=== PATIENT | male | born 1945 | race Caucasian/White ===

== ENCOUNTER 2016-12-17 16:03 | Inpatient (IN) | payer MEDICARE, OTHER ==
[~2016-12-17] VITALS: Ht 172.7 cm; Wt 80.6 kg
[2016-12-17] MEDS ORDERED: SODIUM CHLOR 0.9% 1000 ML INJ 1,000 ML IV ONE (17:15)
[2016-12-17] MEDS ORDERED: WARF-18 PO ×2 (17:16)
[2016-12-17] MEDS ORDERED: FERR325C PO (17:16)
[2016-12-17] MEDS ORDERED: LISI-519 PO (17:16)
[2016-12-17] MEDS ORDERED: WARF-23 PO (17:16)
[2016-12-17] MEDS ORDERED: CYAN2500 PO (17:16)
[2016-12-17 17:17] VITALS: BP 161/75; PULSE 115; RESP 20; TEMP 99.5; O2SAT 99
--- NOTE | 2016-12-17 17:32 | PD ---
HPI Chief Complaint: General Weakness Time Seen by Provider: 16:57 Travel History International Travel<30 days: No Contact w/Intl Traveler<30days: No Traveled to known affect area: No History of Present Illness HPI 71-year-old male complains generalized malaise and weakness. Patient states that the symptoms started 2 days ago. Patient states that he fell about 3 months ago and hit the back of the head. Patient was seen at another emergency room and had CT scan of the brain was found to be normal. Patient states that he has intermittent headaches since then. Patient states that headache of aching headache diffuse over the head. Patient denies any visual change. Patient states that he has chronic neck pain also. Patient states that he has poor appetite for the past 2 days. Patient also complains of severe nausea with no vomiting for the past 2 days. Patient states that he has aching pain on the right lower rib cage for the past 2 days. Patient has history of chronic lower extremity ulcers for the past 6 years. Patient has been seen by home health care with dressing change every to 3 days. Patient goes to the [facility]. Patient has history of hypertension, diabetes, hyperlipidemia. Patient also has history of the heartbeat probably atrial fibrillation. Patient is on Coumadin. Patient states that he drinks 4 beers a day. Patient denies any history of smoking. PFSH Past Medical History Atrial Fibrillation: Yes Cardiovascular Problems: Yes High Cholesterol: Yes Diabetes: Yes Patient Takes Glucophage: No Diminished Hearing: No Hypertension: Yes Musculoskeletal: Yes (neck fx) Tetanus Vaccination: > 5 Years Past Surgical History Eye Surgery: Yes (cateracts) Social History Alcohol Use: Yes (3-4 beers pd) Tobacco Use: Yes Substance Use: No Allergies-Medications (Allergen,Severity, Reaction): Coded Allergies: No Known Allergies (Unverified , 12/17/16) Reported Meds & Prescriptions Reported Meds & Active Scripts Active Reported B-12 (Cyanocobalamin) 2,500 Mcg Tab 2,500 Mcg PO DAILY Iron (Ferrous Sulfate) 325 Mg Cap 325 Mg PO DAILY Warfarin 5 Mg Tab 5 Mg PO DAILY Warfarin 2.5 Mg Tab 2.5 Mg PO SATURDAY Lisinopril 5 Mg Tab 5 Mg PO DAILY Review of Systems General / Constitutional: No: Fever Eyes: No: Visual changes HENT: No: Headaches Cardiovascular: No: Chest Pain or Discomfort Respiratory: No: Shortness of Breath Gastrointestinal: No: Abdominal Pain Genitourinary: No: Dysuria Musculoskeletal: No: Pain Skin: No Rash Neurologic: No: Weakness Psychiatric: No: Depression Endocrine: No: Polydipsia Hematologic/Lymphatic: No: Easy Bruising Physical Exam Narrative GENERAL: Well-nourished, well-developed patient. SKIN: Focused skin assessment warm/dry. HEAD: Normocephalic. EYES: No scleral icterus. No injection or drainage. NECK: Supple, trachea midline. No JVD or lymphadenopathy. CARDIOVASCULAR: Regular rate and rhythm without murmurs, gallops, or rubs. RESPIRATORY: Breath sounds equal bilaterally. No accessory muscle use. GASTROINTESTINAL: Abdomen soft, non-tender, nondistended. MUSCULOSKELETAL: Patient has a large ulcer on the medial aspect of the left lower leg with foul smelling. No discharge. Dressing in place. Patient has a large ulcer on the medial aspect of the right lower leg with foul-smelling also. No discharge. Dressing in place. BACK: Nontender without obvious deformity. No CVA tenderness. Neurologic exam normal. Data Data Last Documented VS Vital Signs Date Time Temp Pulse Resp B/P (MAP) Pulse Ox O2 Delivery O2 Flow Rate FiO2 12/17/16 19:16 109 16 180/83 (115) 99 Room Air 12/17/16 17:17 99.5 Orders Orders Electrocardiogram (12/17/16 17:09) Complete Blood Count With Diff (12/17/16 17:09) Comprehensive Metabolic Panel (12/17/16 17:09) Creatine Kinase (Cpk) (12/17/16 17:09) Troponin I (12/17/16 17:09) B-Type Natriuretic Peptide (12/17/16 17:09) Prothrombin Time / Inr (Pt) (12/17/16 17:09) Act Partial Throm Time (Ptt) (12/17/16 17:09) Urinalysis - C+S If Indicated (12/17/16 17:09) Thyroid Stimulating Hormone (12/17/16 17:09) Chest, Single Ap (12/17/16 17:09) Ct Brain W/O Iv Contrast(Rout) (12/17/16 17:09) Iv Access Insert/Monitor (12/17/16 17:09) Ecg Monitoring (12/17/16 17:09) Oximetry (12/17/16 17:09) Sodium Chlor 0.9% 1000 Ml Inj (Ns 1000 M (12/17/16 17:15) Blood Culture (12/17/16 18:57) Vancomycin Inj (Vancomycin Inj) (12/17/16 19:00) Piperacil-Tazo 3.375 Gm Premix (Zosyn 3. (12/17/16 19:00) Lactic Acid Sepsis Protocol (12/17/16 19:00) Labs Laboratory Tests Test 12/17/16 17:27 12/17/16 18:35 White Blood Count 21.8 TH/MM3 Red Blood Count 3.60 MIL/MM3 Hemoglobin 11.9 GM/DL Hematocrit 34.7 % Mean Corpuscular Volume 96.3 FL Mean Corpuscular Hemoglobin 33.1 PG Mean Corpuscular Hemoglobin Concent 34.4 % Red Cell Distribution Width 16.7 % Platelet Count 209 TH/MM3 Mean Platelet Volume 7.0 FL Neutrophils (%) (Auto) 95.9 % Lymphocytes (%) (Auto) 1.1 % Monocytes (%) (Auto) 2.9 % Eosinophils (%) (Auto) 0.0 % Basophils (%) (Auto) 0.1 % Neutrophils # (Auto) 20.9 TH/MM3 Lymphocytes # (Auto) 0.2 TH/MM3 Monocytes # (Auto) 0.6 TH/MM3 Eosinophils # (Auto) 0.0 TH/MM3 Basophils # (Auto) 0.0 TH/MM3 CBC Comment DIFF FINAL Differential Comment Prothrombin Time 23.3 SEC Prothromb Time International Ratio 2.0 RATIO Activated Partial Thromboplast Time 30.1 SEC Blood Urea Nitrogen 14 MG/DL Creatinine 0.83 MG/DL Random Glucose 158 MG/DL Total Protein 8.4 GM/DL Albumin 3.0 GM/DL Calcium Level 8.6 MG/DL Alkaline Phosphatase 104 U/L Aspartate Amino Transf (AST/SGOT) 13 U/L Alanine Aminotransferase (ALT/SGPT) 14 U/L Total Bilirubin 1.0 MG/DL Sodium Level 130 MEQ/L Potassium Level 4.3 MEQ/L Chloride Level 97 MEQ/L Carbon Dioxide Level 24.2 MEQ/L Anion Gap 9 MEQ/L Estimat Glomerular Filtration Rate 91 ML/MIN Total Creatine Kinase 16 U/L Troponin I LESS THAN 0.02 NG/ML B-Type Natriuretic Peptide 107 PG/ML Thyroid Stimulating Hormone 3rd Gen 1.020 uIU/ML Urine Color YELLOW Urine Turbidity CLEAR Urine pH 6.0 Urine Specific Jackson 1.019 Urine Protein TRACE mg/dL Urine Glucose (UA) NEG mg/dL Urine Ketones TRACE mg/dL Urine Occult Blood SMALL Urine Nitrite NEG Urine Bilirubin NEG Urine Urobilinogen 8.0 MG/DL Urine Leukocyte Esterase NEG Urine RBC 16 /hpf Urine WBC LESS THAN 1 /hpf Urine Squamous Epithelial Cells <1 /hpf Microscopic Urinalysis Comment CULT NOT INDICATED MDM Medical Decision Making Medical Screen Exam Complete: Yes Emergency Medical Condition: Yes Interpretation(s) Last Impressions Chest X-Ray 12/17/16 1709 Signed Impressions: Service Date/Time: Saturday, December 17, 2016 17:16 - CONCLUSION: 1. Compensated cardiomegaly, as above. Avelino Nieto MD [address] scan of the brain shows possible normal pressure hydrocephalus. CBC WBC 21.8. Hemoglobin 11.9 hematocrit 34.7. 85 neutrophil. Sodium 1:30. Chloride 97. Cardiac enzymes are normal. BNP 107. INR 2.0. Differential Diagnosis Differential diagnosis including viral syndrome, TIA, CVA, pneumonia, OR, pericardial effusion, pancreatitis, colitis, UTI, pyelonephritis, dehydration, electrolyte imbalance. Narrative Course 71-year-old male with generalized malaise and weakness and severe nausea. Normal saline solution 1 L IV bolus. Vancomycin 1 g IV. Zosyn 3.375 g IV given. Diagnosis Primary Impression: Weakness generalized Additional Impression: Bilateral leg ulcer Qualified Codes: L97.912 - Non-pressure chronic ulcer of unspecified part of right lower leg with fat layer exposed; L97.922 - Non-pressure chronic ulcer of unspecified part of left lower leg with fat layer exposed Admitting Information Admitting Physician Requests: Admit Jordan Herrera MD Dec 17, 2016 17:32
[2016-12-17 17:34] VITALS: RESP 20; O2SAT 100
--- NOTE | 2016-12-17 17:51 | RADRPT ---
EXAM DATE/TIME: 12/17/2016 17:16 [facility] COMPARISON: No previous studies available for comparison. INDICATIONS : Short of breath. MEDICAL HISTORY : Diabetes mellitus type II. SURGICAL HISTORY : None. ENCOUNTER: Initial ACUITY: 1 day PAIN SCORE: 0/10 LOCATION: Bilateral chest FINDINGS: No significant focal pleural or parenchymal opacities. Cardiac silhouette is enlarged with probable s hift to the right rather than dextrocardia . Right sided thoracic arch. Healed old left-sided rib fra ctures. CONCLUSION: 1. Compensated cardiomegaly, as above. Avelino Nieto MD on December 17, 2016 at 17:44 Board Certified Radiologist. This report was verified electronically.
[2016-12-17 17:54] LABS: AUTOMATED NEUTROPHIL # 20.9 TH/MM3 (1.8-7.7); BASOPHIL % 0.1 % (0.0-2.0); HEMATOCRIT 34.7 % (39.0-51.0); HEMO FLAGS DIFF FINAL; LYMPH % 1.1 % (9.0-44.0); LYMPHOCYTE # 0.2 TH/MM3 (1.0-4.8); MEAN CELL VOLUME 96.3 FL (80.0-100.0); MEAN CORPUSCULAR HEMOGLOBIN 33.1 PG (27.0-34.0); MEAN CORPUSCULAR HGB CONC 34.4 % (32.0-36.0); MONO % 2.9 % (0.0-8.0); NEUT % 95.9 % (16.0-70.0); PLATELET COUNT 209 TH/MM3 (150-450); RED CELL DISTRIBUTION WIDTH 16.7 % (11.6-17.2); WHITE BLOOD COUNT 21.8 TH/MM3 (4.0-11.0)
[2016-12-17 18:06] LABS: ALT (GPT) 14 U/L (12-78); ANION GAP 9 MEQ/L (5-15); APTT (PATIENT) 30.1 SEC (24.3-30.1); AST (GOT) 13 U/L (15-37); BICARBONATE 24.2 MEQ/L (21.0-32.0); BLOOD UREA NITROGEN 14 MG/DL (7-18); CHLORIDE 97 MEQ/L (98-107); GLOMERULAR FILTRATION RATE 91 ML/MIN (>89); POTASSIUM 4.3 MEQ/L (3.5-5.1); PROTHROMBIN TIME - PATIENT 23.3 SEC (9.8-11.6); SODIUM (NA) 130 MEQ/L (136-145)
[2016-12-17 18:16] LABS: ALKALINE PHOSPHATASE 104 U/L (45-117)
--- NOTE | 2016-12-17 18:25 | RADRPT ---
EXAM DATE/TIME: 12/17/2016 18:00 [facility] COMPARISON: No previous studies available for comparison. INDICATIONS : Generalized weakness past 2 days. RADIATION DOSE: 32.76 CTDIvol (mGy) MEDICAL HISTORY : Cardiovascular disease. Hypertension. Diabetes mellitus type 2. SURGICAL HISTORY : None. ENCOUNTER: Initial ACUITY: 2 days PAIN SCALE: 0/10 LOCATION: cranial TECHNIQUE: Multiple contiguous axial images were obtained of the head. Using automated exposure control and adj ustment of the mA and/or kV according to patient size, radiation dose was kept as low as reasonably a chievable to obtain optimal diagnostic quality images. DICOM format image data is available electro nically for review and comparison. FINDINGS: There is no evidence of acute cortical infarction, acute hemorrhage, mass effect or midline shift. Th e ventricles are enlarged out of proportion to the sulcal atrophy. In addition the third ventricle is somewhat prominent. Clinical correlation would be helpful in regards to the possibility of normal pr essure hydrocephalus. Posterior fossa structures are unremarkable. There is periventricular hypodensi ty compatible with chronic ischemic change slightly more than expected for patient this age. CONCLUSION: 1. Possible normal pressure hydrocephalus. Correlation with clinical findings is necessary. No eviden ce of acute intracranial pathology. No masses are identified. Nehemiah Richmond MD on December 17, 2016 at 18:23 Board Certified Radiologist. This report was verified electronically.
[2016-12-17 18:43] VITALS: BP 187/101; PULSE 115; RESP 20; O2SAT 100
[2016-12-17 18:46] LABS: CREATINE KINASE 16 U/L (39-308)
[2016-12-17] MEDS ORDERED: VANCOMYCIN INJ 1,000 MG in SODIUM CHLOR 0.9% 250 ML INJ 250 ML IV ONE ×2 (19:00→23:00)
[2016-12-17] MEDS ORDERED: PIPERACIL-TAZO 3.375 GM PREMIX 50 ML IV ONE (19:00)
[2016-12-17 19:03] LABS: BLOOD, URINE SMALL (NEG); COMMENT (UR) CULT NOT INDICATED; CULTURE IF INDICATED CULT NOT INDICATED; GLUCOSE,URINE NEG (NEG); KETONE, URINE TRACE mg/dL (NEG); NITRITE,URINE NEG (NEG); SQUAMOUS EPITHELIAL CELL URINE <1 /hpf (0-5); URINE COLOR YELLOW (YELLW/STRAW)
[2016-12-17 19:16] VITALS: BP 180/83; PULSE 109; RESP 16; O2SAT 99
[2016-12-17] MEDS ORDERED: NALOXONE HCL 0.4 MG/ML AMP IV PUSH PRN (19:45)
[2016-12-17] MEDS ORDERED: ACETAMINOPHEN 325 MG TAB PO PRN (19:45)
[2016-12-17] MEDS ORDERED: MAGNESIUM HYDROXIDE SUSP 30 ML CUP PO PRN (19:45)
[2016-12-17] MEDS ORDERED: BISACODYL 10 MG SUPP RECTAL PRN (19:45)
[2016-12-17] MEDS ORDERED: ONDANSETRON HCL 4 MG/2 ML VIAL IVP PRN (19:45)
[2016-12-17] MEDS ORDERED: SENNOSIDES 8.6 MG TAB PO PRN (19:45)
[2016-12-17] MEDS ORDERED: LACTULOSE SYRUP 20 GM/30 ML CUP PO PRN (19:45)
[2016-12-17] MEDS ORDERED: SODIUM CHLORIDE 0.9% FLUSH 10 ML FLUSH IV FLUSH PRN (19:45)
[2016-12-17] MEDS ORDERED: GLUCAGON 1 MG/ML VIAL OTHER PRN (20:00)
[2016-12-17] MEDS ORDERED: LORazepam 2 MG/ML VIAL IV PUSH PRN ×4 (20:00)
[2016-12-17] MEDS ORDERED: DEXTROSE 50% IN WATER 50 ML VIAL(D50) IV PUSH PRN (20:00)
[2016-12-17] MEDS ORDERED: LORazepam 1 MG TAB PO PRN (20:00)
[2016-12-17] MEDS ORDERED: LORazepam 2 MG TAB PO PRN (20:00)
[2016-12-17] MEDS ORDERED: SODIUM CHLORIDE 0.9% FLUSH 5 ML FLUSH IV FLUSH PRN (20:00)
[2016-12-17] MEDS ORDERED: FLUMAZENIL 0.5 MG/5 ML VIAL IV PUSH PRN (20:00)
--- NOTE | 2016-12-17 20:20 | HHI.HP ---
[facility] Service Family Medicine Primary Care Physician [facility] Admission Diagnosis generalized weakness. Leg ulcers. Diagnoses: International Travel<30 Days: No Contact w/Intl Traveler<30days: No History of Present Illness Patient is a 71-year-old male with a history significant for atrial fibrillation , hypertension, chronic leg ulcers, diabetes who presents to the ED with a 2 day history of weakness and forgetfulness. He says that he first noticed feeling a subjective fever yesterday with decreased appetite. He had just come back from a quick trip to [place]. He went to sleep but woke up this morning at around 6:30 AM feeling like he "couldn't get up" and that his "legs wouldn't work". He also feels like he's been forgetful. No urinary or bowel incontinence. He does feel like he's been excessively sleepy over the last day or so. He does note he has been unbalanced as well. Chronically he has been working with [place]-appointed home health wound care nurses for management of chronic leg ulcers which have not significantly changed in their character. He denies any discharge or leg pain. His home health nurse noted a fever of 102.4F this morning. He denies chest pain, shortness of breath but he does have a productive cough over the last 2 weeks, productive of thick clear sputum. He feels he is dehydrated because he had trouble getting up out of bed over the last day. He did have a major fall 3 months ago for which he was admitted to [facility]. Workup revealed no abnormalities per patient. He states that the only new medication he has been started on the last month was a cholesterol medication for which he does not know the name. Review of Systems Constitutional: COMPLAINS OF: Fever (102.4F this morning), Change in appetite ( decreased), DENIES: Chills, Dizziness Eyes: DENIES: Blurred vision, Diplopia, Eye inflammation, Eye pain, Vision loss Ears, nose, mouth, throat: COMPLAINS OF: Throat pain, DENIES: Tinnitus, Hearing loss, Vertigo, Nasal discharge, Oral lesions Respiratory: COMPLAINS OF: Cough, Sputum production, DENIES: Wheezing, Hemoptysis, Shortness of breath Cardiovascular: DENIES: Chest pain, Palpitations, Syncope, Lower Extremity Edema Gastrointestinal: COMPLAINS OF: Nausea, DENIES: Abdominal pain, Black stools, Bloody stools, Constipation, Diarrhea, Vomiting, Difficulty Swallowing Genitourinary: DENIES: Urinary frequency, Urinary incontinence, Urgency, Hematuria, Dysuria, Penile Discharge, Testicular Pain, Testicular Swelling Musculoskeletal: DENIES: Joint Swelling, Back pain, Neck pain Integumentary: COMPLAINS OF: Rash (LE bilateral ulcers), DENIES: Pruritus Hematologic/lymphatic: DENIES: Bruising, Lymphadenopathy Immunologic/allergic: DENIES: Eczema, Urticaria Neurologic: COMPLAINS OF: Abnormal gait, Headache (chronic), Poor Balance, DENIES: Localized weakness, Paresthesias, Seizures, Speech Problems, Tremor Psychiatric: DENIES: Anxiety, Depression, Suicidal Ideation, Homicidal Ideation Past Family Social History Past Medical History Chronic LE ulcers - 6 years, poor circulation, compression machine at home HTN Atrial fibrillation Hypercholesterolemia DM - diet controlled Hx cervical fracture Cirrhosis? Past Surgical History Left knee reconstruction - 7 yrs ago Reported Medications Reported Meds & Active Scripts Active Reported B-12 (Cyanocobalamin) 2,500 Mcg Tab 2,500 Mcg PO DAILY Iron (Ferrous Sulfate) 325 Mg Cap 325 Mg PO DAILY Warfarin 5 Mg Tab 5 Mg PO DAILY Warfarin 2.5 Mg Tab 2.5 Mg PO SATURDAY Lisinopril 5 Mg Tab 5 Mg PO DAILY Statin - unknown name, unknown dose Allergies: Coded Allergies: No Known Allergies (Unverified , 12/17/16) Active Ordered Medications Inpatient Medications Acetaminophen (Tylenol) 650 mg Q4H PRN PO TEMP > 100.4; Start 12/17/16 at 19:45 Aspirin (Aspirin Chew) 81 mg DAILY PO ; Start 12/18/16 at 09:00 Bisacodyl (Dulcolax Supp) 10 mg DAILY PRN RECTAL SEVERE CONSITIPATION; Start 12/17/16 at 19:45 Dextrose (D50w (Vial) Inj) 50 ml UNSCH PRN IV PUSH HYPOGLYCEMIA-SEE COMMENTS; Start 12/17/16 at 20:00 Flumazenil (Romazicon Inj) 0.2 mg Q1M PRN IV PUSH SEE LABEL COMMENTS; Start at 20:00 Glucagon (Glucagon Inj) 1 mg UNSCH PRN OTHER HYPOGLYCEMIA-SEE COMMENTS; Start 12/17/16 at 20:00 Insulin Aspart (NovoLOG SUPPLEMENTAL SCALE) 1 ACHS SQ ; Start 12/17/16 at 21:00 IV Flush (NS Flush) 2 ml UNSCH PRN IV FLUSH FLUSH AFTER USING IV ACCESS; Start 12/17/16 at 20:00 Lactulose (Lactulose Liq) 30 ml DAILY PRN PO SEVERE CONSITIPATION; Start at 19:45 Lorazepam (Ativan Inj) 2 mg Q15M PRN IV PUSH CIWA > 20; Start 12/17/16 at 20:00 Lorazepam (Ativan) 2 mg Q2H PRN PO CIWA 11-14; Start 12/17/16 at 20:00 Magnesium Hydroxide (Milk Of Magnesia Liq) 30 ml Q12H PRN PO MILD - MODERATE CONSTIPATION; Start 12/17/16 at 19:45 Naloxone HCl (Narcan Inj) 0.4 mg UNSCH PRN IV PUSH SEE LABEL COMMENTS; Start 12/17/16 at 19:45 Ondansetron HCl (Zofran Inj) 4 mg Q6H PRN IVP NAUSEA OR VOMITING; Start at 19:45 Piperacillin Sod/ Tazobactam Sod 50 ml @ 100 mls/hr ONCE ONCE IV Last administered on 12/17/16 19:15; Start 12/17/16 at 19:00; Stop 12/17/16 at 19:29 ; Status DC Senna/Docusate Sodium (Denise-Colace) 1 tab BID PO ; Start 12/17/16 at 21:00 Sennosides (Senokot) 17.2 mg Q12H PRN PO MODERATE - SEVERE CONSTIPATION; Start 12/17/16 at 19:45 Sodium Chloride (NS Flush) 2 ml BID IV FLUSH ; Start 12/17/16 at 21:00 Vancomycin HCl 1000 mg/Sodium Chloride 250 ml @ 250 mls/hr ONCE ONCE IV Last administered on 12/17/16 19:46; Start 12/17/16 at 19:00; Stop 12/17/16 at 19:59 ; Status DC Family History Mother: TB Father: pacemaker for unknown reason Sibling: healthy No children Social History Smoke: 1 cigar per week Alcohol: heavy drinker in past, drinks 3-4 beers daily (8oz) Illicit drugs: denies Moved from [place] 1 month ago Service: [facility] Physical Exam Vital Signs Vital Signs Date Time Temp Pulse Resp B/P (MAP) Pulse Ox O2 Delivery O2 Flow Rate FiO2 12/17/16 19:16 109 16 180/83 (115) 99 Room Air 12/17/16 18:43 115 20 187/101 (129) 100 Room Air 12/17/16 17:35 99 12/17/16 17:34 20 100 Room Air 12/17/16 17:17 99.5 115 20 161/75 (103) 99 Room Air Physical Exam GENERAL: Well-nourished elderly male patient lying in no apparent distress. SKIN: Warm and dry. Skin is notable for right medial and left lateral ulcers approximately 3 x 1 inches each, shallow, with surrounding hyperpigmentation up to the level of the knee and down to the foot. There is no hair on the legs. There is no obvious signs of infection (no drainage). There is no warmth. HEAD: Atraumatic. Normocephalic. EYES: PERRL. EOMI. No scleral icterus. Mild conjunctival injection noted. ENT: No nasal bleeding or discharge. Mucous membranes pink and moist. NECK: Trachea midline. No JVD. CARDIOVASCULAR: Regular rate and rhythm. No murmurs. RESPIRATORY: No accessory muscle use. Clear to auscultation without crackles or rales. Breath sounds equal bilaterally. GASTROINTESTINAL: Abdomen soft, non-tender, obese. Bowel sounds normal. Hepatic and splenic margins not palpable. MUSCULOSKELETAL: Extremities with mild swelling. No clubbing, cyanosis, or edema. No obvious deformities. NEUROLOGICAL: Awake and alert. supplemental nurse II-XII. Motor grossly within normal limits. 5 /5 muscle strength in the arms and legs. Normal speech. PSYCHIATRIC: Appropriate mood and affect; insight and judgment normal. Laboratory Laboratory Tests Test 12/17/16 17:27 12/17/16 18:35 12/17/16 19:15 White Blood Count 21.8 Red Blood Count 3.60 Hemoglobin 11.9 Hematocrit 34.7 Mean Corpuscular Volume 96.3 Mean Corpuscular Hemoglobin 33.1 Mean Corpuscular Hemoglobin Concent 34.4 Red Cell Distribution Width 16.7 Platelet Count 209 Mean Platelet Volume 7.0 Neutrophils (%) (Auto) 95.9 Lymphocytes (%) (Auto) 1.1 Monocytes (%) (Auto) 2.9 Eosinophils (%) (Auto) 0.0 Basophils (%) (Auto) 0.1 Neutrophils # (Auto) 20.9 Lymphocytes # (Auto) 0.2 Monocytes # (Auto) 0.6 Eosinophils # (Auto) 0.0 Basophils # (Auto) 0.0 CBC Comment DIFF FINAL Differential Comment Prothrombin Time 23.3 Prothromb Time International Ratio 2.0 Activated Partial Thromboplast Time 30.1 Blood Urea Nitrogen 14 Creatinine 0.83 Random Glucose 158 Total Protein 8.4 Albumin 3.0 Calcium Level 8.6 Alkaline Phosphatase 104 Aspartate Amino Transf (AST/SGOT) 13 Alanine Aminotransferase (ALT/SGPT) 14 Total Bilirubin 1.0 Sodium Level 130 Potassium Level 4.3 Chloride Level 97 Carbon Dioxide Level 24.2 Anion Gap 9 Estimat Glomerular Filtration Rate 91 Total Creatine Kinase 16 Troponin I LESS THAN 0.02 B-Type Natriuretic Peptide 107 Thyroid Stimulating Hormone 3rd Gen 1.020 Urine Color YELLOW Urine Turbidity CLEAR Urine pH 6.0 Urine Specific [place] 1.019 Urine Protein TRACE Urine Glucose (UA) NEG Urine Ketones TRACE Urine Occult Blood SMALL Urine Nitrite NEG Urine Bilirubin NEG Urine Urobilinogen 8.0 Urine Leukocyte Esterase NEG Urine RBC 16 Urine WBC LESS THAN 1 Urine Squamous Epithelial Cells <1 Microscopic Urinalysis Comment CULT NOT INDICATED Lactic Acid Level 1.0 Date/Time Source Procedure Growth Status 12/17/16 19:18 Blood Peripheral Aerobic Blood Culture Pending Received 12/17/16 19:18 Blood Peripheral Anaerobic Blood Culture Pending Received Result Diagram: 12/17/16 1727 12/17/16 172 Imaging Last Impressions Chest X-Ray 12/17/16 170 Signed Impressions: Service Date/Time: Saturday, December 17, 2016 17:16 - CONCLUSION: 1. Compensated cardiomegaly, as above. Avelino Nieto MD Septic Shock Reassessment Heart: Irregular Lungs: Clear Skin: Warm, Dry Peripheral Pulses: Weak Right Dorsalis Pedis Weak Left Dorsalis Pedis Weak Right Posterior Tibial Weak Left Posterior Tibial Capillary Refill: Brisk, <2 seconds Caprini VTE Risk Assessment Caprini VTE Risk Assessment: Mod/High Risk (score >= 2) VTE [facility] Contraindication: LE injury/wound Caprini Risk Assessment Model Point Value = 1 Point Value = 2 Point Value = 3 Point Value = 5 Age 41-60 Minor surgery BMI > 25 kg/m2 Swollen legs Varicose veins or History of unexplained or recurrent spontaneous Oral contraceptives or hormone replacement Sepsis (< 1 month) Serious lung disease, including pneumonia (< 1 month) Abnormal pulmonary function Acute myocardial infarction Congestive heart failure (< 1 month) History of inflammatory bowel disease Medical patient at bed rest Age 61-74 Arthroscopic surgery Major open surgery (> 45 min) Laparoscopic surgery (> 45 min) Malignancy Confined to bed (> 72 hours) Immobilizing plaster cast Central venous access Age >= 75 History of VTE Family history of VTE Factor V Leiden Prothrombin [id number] Lupus anticoagulant Anticardiolipin antibodies Elevated serum homocysteine Heparin-induced thrombocytopenia Other congenital or acquired thrombophilia Stroke (< 1 month) Elective arthroplasty Hip, pelvis, or leg fracture Acute spinal cord injury (< 1 month) Prophylaxis Regimen Total Risk Factor Score Risk Level Prophylaxis Regimen 0-1 Low Early ambulation 2 Moderate Order ONE of the following: *Sequential Compression Device (SCD) *Heparin 5000 units SQ BID 3-4 Higher Order ONE of the following medications: *Heparin 5000 units SQ TID *Enoxaparin/Lovenox 40 mg SQ daily (WT < 150 kg, CrCl > 30 mL/min) *Enoxaparin/Lovenox 30 mg SQ daily (WT < 150 kg, CrCl > 10-29 mL/min) *Enoxaparin/Lovenox 30 mg SQ BID (WT < 150 kg, CrCl > 30 mL/min) AND/OR *Sequential Compression Device (SCD) 5 or more Highest Order ONE of the following medications: *Heparin 5000 units SQ TID (Preferred with Epidurals) *Enoxaparin/Lovenox 40 mg SQ daily (WT < 150 kg, CrCl > 30 mL/min) *Enoxaparin/Lovenox 30 mg SQ daily (WT < 150 kg, CrCl > 10-29 mL/min) *Enoxaparin/Lovenox 30 mg SQ BID (WT < 150 kg, CrCl > 30 mL/min) AND *Sequential Compression Device (SCD) Assessment and Plan Assessment and Plan Patient is a 71-year-old male with history significant for hypertension, diabetes, hyperlipidemia, alcohol abuse, A. fib who presents with 2 day history of malaise and weakness. CT was notable for enlarged ventricles, no evidence of acute bleed. Neurologic exam is unremarkable. Clinically, differential for patient's symptoms are broad, however, given that he meets SIRS criteria on admission based on leukocytosis and tachycardia, infection is likely playing a role. Source is possibly the lower extremities versus urine versus respiratory versus bacteremia. ED course: Patient received 1 L bolus normal saline, IV access, basic labs, blood cultures, chest x-ray, urinalysis. CT brain was also performed. Lactic acid performed and normal. He was started on Vancomycin and Zosyn empirically. Code Status Full Code Discussed Condition With SDW Dr. Hatfield, WDW Dr. Stone Problem List: (1) Sepsis ICD Codes: A41.9 - Sepsis, unspecified organism Status: Acute Plan: Patient presents as noted above. Given generalized malaise and weakness, concern for sepsis with skin as potential source is high. Other potential source for infection includes respiratory infection. Patient does not meet severe sepsis or septic shock criteria based normal lactate, no organ dysfunction noted on lab work. He is hypertensive. We'll monitor labs, rehydrate , continue treatment with broad spectrum antibiotics at this time. * Lactate 1.0 * No kidney dysfunction. Liver dysfunction may be chronic as noted by urobilinogen in urine. INR elevated but patient on warfarin. * Blood culture and urine culture pending. Sputum culture ordered * Monitor vital signs every 4 hours * Vancomycin 1 g every 24 hours, pharmacy consult ordered * Zosyn 3.375 g every 6 hours * Repeat labs and cultures as needed for new fever, new symptoms. (2) Weakness generalized ICD Codes: R53.1 - Weakness; L97.929 - Non-pressure chronic ulcer of unspecified part of left lower leg with unspecified severity Status: Acute Plan: Patient does present with generalized weakness with a broad differential including NPH, sepsis, CVA, TIA, electrolyte abnormality, hypoglycemia. Chronicity of symptoms place patient outside of any stroke treatment windows. Glucose was normal on admission. CT head does show evidence of enlarged ventricles though patient has no evidence of altered mental status or urinary incontinence. * Initiate full CVA workup to include head MRI, head MRA, carotid ultrasound * PT evaluation * Speech evaluation, bedside swallow evaluation prior to eating * Aspirin * Continue warfarin * Lipid profile * Hemoglobin A1c * Trend cardiac enzymes and EKGs * Accu-Cheks with supplemental insulin as needed * Neurology is consulted to assist in medical management, appreciate recs regarding further workup though symptoms may be related to sepsis (3) Bilateral leg ulcer ICD Codes: L97.919 - Non-pressure chronic ulcer of unspecified part of right lower leg with unspecified severity; L97.929 - Non-pressure chronic ulcer of unspecified part of left lower leg with unspecified severity Status: Acute Plan: Patient has multiple chronic wounds on the lower extremities. He has been managed via home health nursing for many months. He has no symptoms related to these ulcers. The ulcers do not appear acutely infected. However, given the necessity of wounds, cannot exclude these wounds as source of infection. * Antibiotics as above * Wound care consult * Ultrasound bilateral lower extremity * Keep wounds clean and dry * Monitor for signs of acute infection (4) Atrial fibrillation with normal ventricular rate ICD Codes: I48.91 - Unspecified atrial fibrillation Status: Chronic Plan: Patient with chronic history of A. fib on warfarin. Rate is 104, controlled on EKG. He has 1-lead with possible ascitic depression (C4, otherwise no evidence of ischemic changes. * Monitor on telemetry * Monitor for RVR, if noted will treat accordingly (5) Cardiomegaly ICD Codes: I51.7 - Cardiomegaly Status: Acute Plan: Patient notes have significant cardiomegaly on CXR, and this may related to CHF, pericardial effusion, etc. We'll order 2-D echo to further elucidate (6) HTN (hypertension) ICD Codes: I10 - Essential (primary) hypertension Status: Chronic Plan: Chronic hypertension, we'll treat with low-dose lisinopril and PRN Vasotec (7) Hyperlipemia ICD Codes: E78.5 - Hyperlipidemia, unspecified Status: Chronic Plan: Patient states he has hyperlipidemia but is not on medications for it * Lipid profile ordered (8) Alcohol use ICD Codes: Z78.9 - Other specified health status Status: Chronic Plan: Chronic alcohol overuse. CIWA protocol. Multivitamins. (9) Fluids/Electrolytes/Nutrition/Prophylaxis Status: Acute Plan: Fluids: 1L bolus in ED, then NS + KCl 20meq/L @ 125cc/hr Electrolytes: monitor and replete as needed, add Mg and Phos to labs Nutrition: NPO pending swallow evaluation, then ADA 1999 DVT Prophylaxis: Warfarin GI Prophylaxis: None indicated Physician Certification 2 Midnight Certification Type: Admission for Inpatient Services Order for Inpatient Services The services are ordered in accordance with Medicare regulations or non- Medicare payer requirements, as applicable. In the case of services not specified as inpatient-only, they are appropriately provided as inpatient services in accordance with the 2-midnight benchmark. Estimated LOS (days): 3 days is the estimated time the patient will need to remain in the hospital, assuming treatment plan goals are met and no additional complications. Post-Hospital Plan: Home Problem Qualifiers (1) Sepsis: Qualified Codes: A41.9 - Sepsis, unspecified organism (2) Bilateral leg ulcer: Qualified Codes: L97.912 - Non-pressure chronic ulcer of unspecified part of right lower leg with fat layer exposed; L97.922 - Non-pressure chronic ulcer of unspecified part of left lower leg with fat layer exposed (3) HTN (hypertension): Qualified Codes: I10 - Essential (primary) hypertension (4) Hyperlipemia: Qualified Codes: E78.5 - Hyperlipidemia, unspecified Sindy Bolden MD R2 Dec 17, 2016 20:20
[2016-12-17 20:45] VITALS: BP 167/72; PULSE 115; RESP 16; TEMP 97.8; O2SAT 100
[2016-12-17] MEDS: INSULIN ASPART SUPPLEMENTAL SCALE SQ SCH (21:00)
[2016-12-17] MEDS: DOCUSATE SODIUM 50 MG/SENNA 8.6 MG TAB PO SCH (21:00)
[2016-12-17] MEDS ORDERED: SODIUM CHLORIDE 0.9% FLUSH 10 ML FLUSH IV FLUSH SCH (21:00)
[2016-12-17 21:15] VITALS: PULSE 109
[2016-12-17] MEDS: SODIUM CHLORIDE 0.9% FLUSH 5 ML FLUSH IV FLUSH SCH (22:00)
[2016-12-17] MEDS ORDERED: ENALAPRILAT 1.25 MG/ML VIAL IV PUSH PRN (22:30)
[2016-12-17] MEDS ORDERED: Vancomycin Consult Pharmacy 1 EA OTHER SCH (22:30)
[2016-12-17] MEDS: NS + KCL 20 MEQ INJ 1,000 ML IV SCH (22:49)
--- NOTE | 2016-12-17 22:53 | RADRPT ---
EXAM DATE/TIME: 12/17/2016 22:05 [facility] COMPARISON: No previous studies available for comparison. INDICATIONS : Bilateral swelling. MEDICAL HISTORY : Hypercholesterolemia. Hypertension. Atrial fibrillation. ETOH abuse. Diabetes. SURGICAL HISTORY : Cataracts. Neck fracture. ENCOUNTER: Initial ACUITY: 3 days PAIN SCORE: 0/10 LOCATION: Bilateral legs. TECHNIQUE: Venous ultrasound of the left and right leg was performed from the inguinal ligament to the proximal calf. Real-time, color Doppler and spectral tracing, compression and augmentation techniques were us ed. FINDINGS: RIGHT LEG: There is normal compressibility of the deep venous system from the inguinal region to the proximal ca lf. No echogenic clot is seen in the lumen of the common femoral, femoral, popliteal, and posterior tibial veins. There is a normal response of the venous system to proximal and distal augmentation an d respiration. LEFT LEG: There is normal compressibility of the deep venous system from the inguinal region to the proximal ca lf. No echogenic clot is seen in the lumen of the common femoral, femoral, popliteal, and posterior tibial veins. There is a normal response of the venous system to proximal and distal augmentation an d respiration. CONCLUSION: 1. No evidence of deep venous thrombosis. 2. Nonspecific right inguinal adenopathy with the largest lymph node measuring 3.6 cm Nehemiah Richmond MD on December 17, 2016 at 22:50 Board Certified Radiologist. This report was verified electronically.
[2016-12-18] VITALS (9 sets, daily range): BP systolic 136–172; BP diastolic 60–92; PULSE 69–94; RESP 18–21; TEMP 97.5–99.2; O2SAT 97–100
[2016-12-18] MEDS ORDERED: cloNIDine HCL 0.1 MG TAB PO PRN (00:15)
--- NOTE | 2016-12-18 00:27 | RADRPT ---
EXAM DATE/TIME: 12/17/2016 21:46 [facility] COMPARISON: No previous studies available for comparison. INDICATIONS : Syncope. MEDICAL HISTORY : Hypercholesterolemia. Hypertension. Atrial fibrillation. ETOH abuse. Diabetes. SURGICAL HISTORY : Cataracts. Neck fracture. ENCOUNTER: Initial ACUITY: 1 day PAIN SCORE: 0/10 LOCATION: Bilateral neck PEAK SYSTOLIC VELOCITIES (cm/sec): ICA/CCA RATIO: Right: 3.4 Left: 2.3 ICA: Right: 181 Left: 115 CCA: Right: 53 Left: 50 ECA: Right: 76 Left: 69 VERTEBRAL: Right: 11 antegrade Left: 50 antegrade Elevated flow velocities and ICA/CCA ratios have been found to correlate with increased degrees of vessel stenosis, calculated as percentage of diameter relative to a normal segment of distal ICA/CCA FINDINGS: RIGHT CAROTID: Flow velocity acceleration within the proximal to mid right ICA indicating at least moderate stenotic narrowing, potentially 50-69%. LEFT CAROTID: Mild flow velocity acceleration within the proximal to mid ICA. Likely mild stenotic narrowing estima lolis at less than 50%. VERTEBRAL ARTERIES: Antegrade flow is seen in both vertebral arteries. MISCELLANEOUS: None. CONCLUSION: Moderate right carotid bifurcation stenosis suspected. Recommend further anatomic evaluation with CTA examination of the arch and carotids. Jefe Paris MD on December 18, 2016 at 0:23 Board Certified Radiologist. This report was verified electronically.
[2016-12-18] MEDS: PIPERACIL-TAZO 3.375 GM PREMIX 50 ML IV SCH ×4 (02:00→19:17)
[2016-12-18 05:57] LABS: HEMATOCRIT 29.4 % (39.0-51.0); MEAN CELL VOLUME 95.2 FL (80.0-100.0); MEAN CORPUSCULAR HEMOGLOBIN 33.2 PG (27.0-34.0); MEAN CORPUSCULAR HGB CONC 34.9 % (32.0-36.0); PLATELET COUNT 186 TH/MM3 (150-450); RED BLOOD COUNT 3.09 MIL/MM3 (4.50-5.90); RED CELL DISTRIBUTION WIDTH 16.7 % (11.6-17.2); REVIEW FLAG FINAL; WHITE BLOOD COUNT 14.9 TH/MM3 (4.0-11.0)
[2016-12-18 06:07] LABS: INTERNATIONAL NORMALIZED RATIO 2.3 RATIO; PROTHROMBIN TIME - PATIENT 25.9 SEC (9.8-11.6)
[2016-12-18 06:29] LABS: ANION GAP 7 MEQ/L (5-15); BICARBONATE 22.7 MEQ/L (21.0-32.0); BLOOD UREA NITROGEN 14 MG/DL (7-18); CHLORIDE 102 MEQ/L (98-107); GLOMERULAR FILTRATION RATE 135 ML/MIN (>89); MAGNESIUM 1.8 MG/DL (1.5-2.5); POTASSIUM 3.8 MEQ/L (3.5-5.1); SODIUM (NA) 132 MEQ/L (136-145)
[2016-12-18 06:33] LABS: HDL CHOLESTEROL 59.4 MG/DL (40.0-60.0); LDL CHOLESTEROL 31 MG/DL (0-99)
[2016-12-18] MEDS: NS + KCL 20 MEQ INJ 1,000 ML IV SCH (07:00)
[2016-12-18] MEDS: INSULIN ASPART SUPPLEMENTAL SCALE SQ SCH ×2 (08:00→12:00)
[2016-12-18] MEDS: SODIUM CHLORIDE 0.9% FLUSH 5 ML FLUSH IV FLUSH SCH ×2 (09:00→21:00)
[2016-12-18] MEDS ORDERED: NON-FORMULARY DRUG (Ferrous Sulfate (Iron) 325 MG) PO SCH (09:00)
[2016-12-18] MEDS ORDERED: LISINOPRIL 5 MG TAB PO SCH (09:00)
--- NOTE | 2016-12-18 09:38 | HHI.FPPN ---
Subjective Remarks Patient seen and examined this morning. No acute events overnight. He denies chest pain, shortness of breath, abdominal pain. He reports that his legs appear to be stable compared to time of admission. He denies any acute neurologic changes: no vision changes, slurring of speech, muscle weakness. He endorses feeling a little confused, but answers questions appropriately. (Dionne Bolden MD R3) Objective Vitals Vital Signs Date Time Temp Pulse Resp B/P (MAP) Pulse Ox O2 Delivery O2 Flow Rate FiO2 12/18/16 08:03 98.7 80 18 139/74 (95) 97 12/18/16 04:00 97.8 84 18 136/60 (85) 98 12/18/16 00:00 99.2 94 18 138/63 (88) 98 12/17/16 22:00 Room Air 12/17/16 21:15 109 12/17/16 20:56 12/17/16 20:45 97.8 115 16 167/72 (103) 100 12/17/16 19:16 109 16 180/83 (115) 99 Room Air 12/17/16 18:43 115 20 187/101 (129) 100 Room Air 12/17/16 17:35 99 12/17/16 17:34 20 100 Room Air 12/17/16 17:17 99.5 115 20 161/75 (103) 99 Room Air I/O 12/17/16 12/17/16 12/17/16 12/18/16 12/18/16 12/18/16 07:00 15:00 23:00 07:00 15:00 23:00 Intake Total 1300 ml 1304 ml Output Total 500 ml Balance 1300 ml 804 ml Intake Oral 480 ml IV Total 1300 ml 824 ml Output Urine Total 500 ml # Bowel Movements 0 (Dionne Bolden MD R3) Result Diagram: 12/18/1652412/18/16524 Objective Remarks GENERAL: Well-nourished elderly male patient lying in bed, in no apparent distress. SKIN: Warm and dry. Skin is notable for right medial and left lateral ulcers approximately 3 x 1 inches each, shallow, with surrounding hyperpigmentation up to the level of the knee and down to the foot. There is no hair on the legs. Wound on right lower extremity with small amount of purulent drainage. HEAD: Atraumatic. Normocephalic. EYES: PERRL. EOMI. No scleral icterus. Mild conjunctival injection noted. ENT: No nasal bleeding or discharge. Mucous membranes pink and moist. NECK: Trachea midline. No JVD. CARDIOVASCULAR: Irregular rhythm. 2/6 systolic murmur at upper sternal border. RESPIRATORY: No accessory muscle use. Clear to auscultation. Breath sounds equal bilaterally. GASTROINTESTINAL: Abdomen soft, non-tender, obese. Bowel sounds normal. MUSCULOSKELETAL: Extremities with mild swelling, see skin above. No clubbing, cyanosis. NEUROLOGICAL: Awake and alert. soft water mechanic II-XII. Motor grossly within normal limits. Normal speech. PSYCHIATRIC: Appropriate mood and affect; insight and judgment normal. (Dionne Bolden MD R3) A/P Assessment and Plan Patient is a 71-year-old male with history significant for hypertension, diabetes, hyperlipidemia, alcohol abuse, A. fib who presents with 2 day history of malaise and weakness. CT was notable for enlarged ventricles, no evidence of acute bleed. Neurologic exam is unremarkable. Clinically, differential for patient's symptoms are broad, however, given that he meets SIRS criteria on admission based on leukocytosis and tachycardia, infection is likely playing a role. Source is likely lower extremity wounds. ED course: Patient received 1 L bolus normal saline, IV access, basic labs, blood cultures, chest x-ray, urinalysis. CT brain was also performed. Lactic acid performed and normal. He was started on Vancomycin and Zosyn empirically. Discharge Planning Anticipate discharge after workup for altered mental status has been completed and patient has been cleared by neurology. Likely 1-2 days. (Dionne Bolden MD R3) Attending Attestation Table rounds about patients admission were held with Dr Scottie Bolden,Dr Lora Bolden ,Dr Carter and Dr Hatfield, patient was interviewed and examined with medical team, agree with contents of note, see orders. (Uriel Stone MD) Problem List: (1) Bilateral leg ulcer ICD Codes: L97.919 - Non-pressure chronic ulcer of unspecified part of right lower leg with unspecified severity; L97.929 - Non-pressure chronic ulcer of unspecified part of left lower leg with unspecified severity Status: Acute Plan: Patient has multiple chronic wounds on the lower extremities. He has been managed via home health nursing for many months. He has no acute symptoms related to these ulcers. Likely source of infection, as chest x ray with no signs of pneumonia and UA with negative nitrites and leukocyte esterase. * Wound culture obtained * Blood culture with no growth to date * Wound care consult * Keep wounds clean and dry * Monitor for signs of acute infection Imaging: Lower extremity ultrasound: No evidence of DVT, nonspecific right inguinal adenopathy with the largest of done measuring 3.6 cm Medications: Vancomycin 1500 mg BID, pharmacy consulted Zosyn 3.375 g every 6 hours Labs and blood cultures to be repeated if there are signs/symptoms concerning for an acute infection (2) Weakness generalized ICD Codes: R53.1 - Weakness; L97.929 - Non-pressure chronic ulcer of unspecified part of left lower leg with unspecified severity Status: Acute Plan: Patient presented with generalized weakness with a broad differential including NPH, sepsis, CVA, TIA, electrolyte abnormality, hypoglycemia. Chronicity of symptoms place patient outside of any stroke treatment windows. Glucose was normal on admission. CT head does show evidence of enlarged ventricles though patient has no evidence of altered mental status or urinary incontinence. * Acute CVA ruled out, see imaging results below * PT evaluation * Aspirin * Continue warfarin, see Atrial fibrillation * Lipid profile within normal limits * Hemoglobin A1c pending * ACS rule out negative * Will DC Accu-Cheks as blood sugars have been within normal limits * Neurology is consulted to assist in medical management, appreciate recs regarding further workup though symptoms may be related to sepsis * CTA neck ordered to further evaluate carotid stenosis Imaging: Brain MRI: Stable mild diffuse ventriculomegaly out of proportion to the degree of atrophy. Correlation for normal pressure hydrocephalus is recommended. No acute ischemic or other acute intracranial abnormality Brain MRA: Unremarkable exam Head CT: Possible normal pressure hydrocephalus. No evidence of acute cranial pathology. No masses identified. Carotid artery ultrasound: Moderate right carotid bifurcation stenosis suspected. CT of the carotids recommended. (3) Atrial fibrillation with normal ventricular rate ICD Codes: I48.91 - Unspecified atrial fibrillation Status: Chronic Plan: Patient with chronic history of A. fib on warfarin, rate controlled * Monitor on telemetry * Monitor for RVR, if noted will treat accordingly * Continue home Warfarin, pharmacy consulted (4) Cardiomegaly ICD Codes: I51.7 - Cardiomegaly Status: Acute Plan: Patient notes have significant cardiomegaly on CXR, and this may related to CHF, pericardial effusion, etc. We'll order 2-D echo to further elucidate. (5) HTN (hypertension) ICD Codes: I10 - Essential (primary) hypertension Status: Chronic Plan: Chronic hypertension, we'll treat with low-dose lisinopril and PRN Vasotec (6) Alcohol use ICD Codes: Z78.9 - Other specified health status Status: Chronic Plan: Chronic alcohol overuse. Patient counseled regarding alcohol cessation [place] protocol. Rally pack. (7) Fluids/Electrolytes/Nutrition/Prophylaxis Status: Acute Plan: Fluids:None Electrolytes: monitor and replete as needed Nutrition: Diabetic diet DVT Prophylaxis: Warfarin GI Prophylaxis: None indicated (Dionne Bolden MD R3) Problem Qualifiers (1) Bilateral leg ulcer: Qualified Codes: L97.912 - Non-pressure chronic ulcer of unspecified part of right lower leg with fat layer exposed; L97.922 - Non-pressure chronic ulcer of unspecified part of left lower leg with fat layer exposed (2) HTN (hypertension): Qualified Codes: I10 - Essential (primary) hypertension Dionne Bolden MD R3 Dec 18, 2016 09:38 Uriel Stone MD Dec 19, 2016 12:57
--- NOTE | 2016-12-18 09:40 | RADRPT ---
EXAM DATE/TIME: 12/18/2016 08:19 [facility] COMPARISON: CT BRAIN W/O CONTRAST, December 17, 2016, 18:00. INDICATIONS : Generalized weakness. MEDICAL HISTORY : Hypertension. Diabetes mellitus type 2. SURGICAL HISTORY : lt knee surgery ENCOUNTER: Subsequent ACUITY: 2 day PAIN SCORE: 0/10 LOCATION: cranial TECHNIQUE: Multiplanar, multisequence MRI of the brain was performed without contrast. FINDINGS: CEREBRUM: There is mild to moderate diffuse cerebral volume loss. Lateral ventricles are disproportionately enl arged with enlargement of the third and fourth ventricles. No evidence of midline shift, mass lesion, hemorrhage or acute infarction. No extraaxial fluid collections are seen. The pituitary gland and suprasellar cistern are normal in configuration. WHITE MATTER: Mild periventricular and scattered deep white matter T2 prolongation. This appears most consistent wi th periventricular ischemic white matter demyelination. POSTERIOR FOSSA: The cerebellum and brainstem are intact. The 4th ventricle is midline. The cerebellopontine angle is unremarkable. The cerebellar tonsils are normal in position. DIFFUSION IMAGING: No focal areas of restricted diffusion are seen. No evidence of acute infarction. EXTRACRANIAL: The visualized portions of the orbits and paranasal sinuses are unremarkable. CONCLUSION: 1. Stable mild diffuse ventriculomegaly out of proportion to the degree of atrophy. Correlation for n ormal pressure hydrocephalus is recommended. 2. No acute ischemia or other acute intracranial abnormality. Avelino Nieto MD on December 18, 2016 at 9:15 Board Certified Radiologist. This report was verified electronically.
--- NOTE | 2016-12-18 09:42 | RADRPT ---
EXAM DATE/TIME: 12/18/2016 08:19 [facility] COMPARISON: No previous studies available for comparison. INDICATIONS : Generalized weakness. MEDICAL HISTORY : Hypertension. Diabetes mellitus type 2. SURGICAL HISTORY : Lt knee surgery ENCOUNTER: Subsequent ACUITY: 2 day PAIN SCORE: 0/10 LOCATION: cranial Please note a normal MRA of the brain does not entirely exclude the possibility of a small aneurysm, nor the possibility of distal intracranial vessel disease. TECHNIQUE: 3D time of flight MRA was performed. Source images, multiplanar STS MIP, and 3D volume MIP reconstru ctions were reviewed. FINDINGS: Anterior circulation: Distal intracranial internal carotid arteries are patent with flow extending to the middle and anteri or cerebral arteries. There is no evidence for aneurysm, vessel truncation or stenosis, and no eviden ce for vascular malformation. Posterior circulation: Symmetric distal vertebral arteries with flow extending to basilar artery. There is no evidence for aneurysm, vessel truncation or stenosis, and no evidence for vascular malformation. CONCLUSION: 1. Unremarkable MRA examination of the brain. Avelino Nieto MD on December 18, 2016 at 9:38 Board Certified Radiologist. This report was verified electronically.
--- NOTE | 2016-12-18 09:52 | EKG ---
Date Performed: 12/17/2016 Time Performed: 17:56:29 PTAGE: 71 years EKG: ATRIAL FIBRILLATION WITH RAPID VENTRICULAR RESPONSE MODERATE ST DEPRESSION ABNORMAL ECG NO PREVIOUS TRACING DOCTOR: Nehemiah Bolden Interpretating Date/Time 12/18/2016 09:51:30
[2016-12-18] MEDS: THIAMINE HCL 100 MG TAB PO SCH (09:55)
[2016-12-18] MEDS: DOCUSATE SODIUM 50 MG/SENNA 8.6 MG TAB PO SCH ×2 (09:55→20:49)
[2016-12-18] MEDS: FERROUS SULFATE 325 MG (65 MG ELEMENTAL IRON) TAB PO SCH (09:55)
[2016-12-18] MEDS: LISINOPRIL 5 MG TAB PO SCH (09:55)
[2016-12-18] MEDS: FOLIC ACID 1 MG TAB PO SCH (09:55)
[2016-12-18] MEDS: MULTIVITAMIN TAB PO SCH (09:55)
[2016-12-18] MEDS: ASPIRIN 81 MG CHEW TAB PO SCH (09:56)
[2016-12-18] MEDS: VANCOMYCIN INJ 1,500 MG in SODIUM CHLORID 0.9% 500 ML INJ 500 ML IV SCH (12:25)
[2016-12-18] MEDS: WARFARIN SOD 5 MG TAB PO SCH (17:04)
--- NOTE | 2016-12-18 17:07 | MB ---
cc: CANDACE SESAY M.D. DATE OF CONSULTATION 12/18/16 DATE OF 1945 AGE 71 REASON FOR CONSULTATION Encephalopathy, mental status change. HISTORY OF PRESENT ILLNESS This is a pleasant 71-year-old man who comes in with a history of atrial fibrillation, hypertension, chronic leg ulcers, diabetes, two day history of weakness, forgetfulness, found at home confused. He had recently moved here from [place] a month and a half ago. Apparently, he went to sleep, woke up, could not get up, was unable to get to the phone, luckily he was found by someone, very sleepy, unbalanced. He usually has somebody from the [place] come to the house for wound care. I believe that person had found him. The person comes for chronic leg ulcers. He also has home PT. His home health nurse noted that he had a fever of 102.4, productive cough. PAST MEDICAL HISTORY The past medical history as stated. HOME MEDICATIONS 1. B12. 2. Iron. 3. Warfarin. 4. Lisinopril. 5. Nystatin. ALLERGIES None reported. PHYSICAL EXAMINATION VITAL SIGNS: On exam vitals temperature is 98.4, however, on admission was 99.5, pulse 69, respiratory rate 18, blood pressure 148/69. NECK: Neck is supple. No bruits. HEART: Irregularly irregular. NEURO: He is awake and alert. He knows he is at [facility] in [facility]. He knows he is in [place]. He can tell me the governor, [place]. He knows the mayor of [facility], Gloria Dial. He knows that it is December. He knows it is Saturday. He thought it was the . He knows it is 2016. Current events he is up-to-date. His speech is normal. Pupils reactive. Face symmetrical. Tongue midline. Motor jo, he does not exhibit any weakness in his arms nor legs, just some chronic wounds in his legs that are dressed. Gait defer to PT, actually walked with PT today with a walker. Cerebellar testing is normal. IMAGING STUDIES MRI brain stable ventriculomegaly, possible atrophy versus NPH. [place] was unremarkable. MRA carotid ultrasound moderate right carotid bifurcation stenosis suspected. They are recommending a CTA if needed. Ultrasound lower extremities no DVT. LABORATORY DATA White count was 21.8 yesterday, today is 14.9, hemoglobin 10.3, platelets 186,000. Coag panels INR today is 2.3. Chemistries sodium today is 132, yesterday was 130. His GFR is 135, glucose 119, calcium 7.9, lactic acid 1. Hemoglobin A1c is pending. Phosphorus 2.4, cholesterol 99, triglycerides 41, LDL 31, HDL 59.6. Urine trace ketones, small blood, culture was not indicated. Blood cultures so far negative. Chest x-ray shows compensated cardiomegaly. IMPRESSION A 71-year-old man with change in mental status likely related to his sepsis. May be due to his multiple leg wounds. His white count is now improving. His mental state seems to be improving as well. Continue antibiotics. Continue wound care. He will be given a sputum sample, although, chest x-ray has been normal. Generalized weakness I suspect is somewhat from his elevated temperature and white count elevation. I do not believe he has NPH. He does not seem to have dementia or incontinence. However, this is something we can follow as an outpatient. I cannot assess his gait at this time for magnetic gait. At this point in time certainly we can get a CT angiogram or an MRA of his carotids to see if in fact the stenosis that they described over the right is accurate or not. I will go ahead and get an MRA without contrast initially and if that is still somewhat questionable then a CTA of the carotids should be done. Continue current care. No further testing from my perspective at this point in time except for looking at his carotid artery. Thank you, please call me with any questions or concerns. MD TAMAR Choi/NUPUR /4:01 PM /4:46 PM
--- NOTE | 2016-12-18 17:31 | PD.WCN.NOT ---
Wound Consult Description: Received wound management consult from Doctor Hatfield for Chronic stasis ulcers on B/L legs, typically managed by home nurse Communicated with: RN Daniela Noland and Doctor Brigitte Mg Resident Recommendation: Please cleanse wounds to bilateral lower extremities with normal saline or wound cleanser and apply Optifoam basic non adhesive dressing over wound beds and secure with rolled gauze and tape. Change dressings every 2 days or PRN if saturated or dislodged Please elevate BLE to reduce edema Additional Information: Patient seen on [address] [place] [address] for evaluation of wound management of leg, chronic stasis ulcers on B/L legs typically managed by home nurse. Patient is laying in bed during wound assessment. Spoke with patient about which home health care does dressing changes and what dressings are being used. Patient does not know which home health care he has or what dressings are being applied to legs. Removed rolled gauze and 4x4 gauze dressings in place to reveal wounds. Wounds appear to be mostly covered with a scab on both legs, but upon closer inspection, noticed what was covering the wounds, was old calcium alginate dressing, the remnants of a previous dressing. Used normal saline to loosen alginate dressing and removed old alginate dressing to reveal 100% beefy red granulation tissue on wounds to both legs.Wound to L leg measures 6 cm x5 cm x~ 0.1cm . Wound on R leg measures 3cm x 3.5cm x ~0.1cm. Both wounds have moderate amount of sero-sanguinous drainage that is with out odor. Bilateral lower extremities both present with hard non pitting edema and dry skin with hemosiderin staining. Wound margins on wound to L leg are uneven and well defined. Wound margins on wound present as even and well defined with round shape. Periwound presents with new epithelial tissue forming. No induration or increased heat is noted. All findings indicate possible venous stasis etiology. Cleansed wounds with normal saline and pat dry. Obtained wound culture of R leg wound. Covered open wounds with optifoam basic non adhesive dressing and secured dressing with rolled gauze and tape. Karlie Rodriguez [facility] Dec 18, 2016 17:31
[2016-12-18] MEDS ORDERED: IOHEXOL 350 MG/ML 10 ML VIAL (for RAD DIAG) IVCONTRAST ONE (18:29)
--- NOTE | 2016-12-18 19:11 | RADRPT ---
EXAM DATE/TIME: 12/18/2016 18:05 [facility] COMPARISON: No previous studies available for comparison. INDICATIONS : Generalized weakness, possible right carotid stenosis on ultrasound. IV CONTRAST: 65 cc Omnipaque 350 (iohexol) IV RADIATION DOSE: 18.61 CTDIvol (mGy) MEDICAL HISTORY : Cardiovascular disease. Hypertension. Diabetes mellitus type 2. SURGICAL HISTORY : None. ENCOUNTER: Initial ACUITY: 1 day PAIN SCALE: 0/10 LOCATION: neck Elevated flow velocities and ICA/CCA ratios have been found to correlate with increased degrees of vessel stenosis, calculated as percentage of diameter relative to a normal segment of distal ICA/CCA. TECHNIQUE: Volumetric scanning was performed using a multirow detector CT scanner. The data was post processed with a variety of visualization algorithms including full-volume maximum intensity projection, multip lanar sliding thin-slab reformation, curved-planar reformation, and surface-rendering techniques. Us ing automated exposure control and adjustment of the mA and/or kV according to patient size, radiatio n dose was kept as low as reasonably achievable to obtain optimal diagnostic quality images. DICOM f ormat image data is available electronically for review and comparison. FINDINGS: AORTIC ARCH: There is a three-vessel origin of the great vessels from the aorta. No evidence of ostial narrowing. RIGHT CAROTID: The common carotid artery is intact. There are calcified plaques at the bifurcation. However, no foca l or significant stenosis is demonstrated. There is flow in the internal and external vessels. LEFT CAROTID: The common carotid artery is intact. There are calcified plaques at the bifurcation. There is mild na rrowing at the origin of the internal carotid artery. However no high-grade stenosis is demonstrated. There is flow in the internal/external vessels. VERTEBRALS: The vertebral arteries have a symmetric diameter. No stenotic lesions are seen. CONCLUSION: 1. Prominent calcified plaques are noted at both bifurcations. 2. Mild narrowing at the origin of the left internal carotid artery. 3. No focal high-grade stenosis is demonstrated. Anjel Mayfield MD on December 18, 2016 at 19:07 Board Certified Radiologist. This report was verified electronically.
[2016-12-18 21:34] LABS: HEMOGLOBIN A1a 1.6 %; HEMOGLOBIN A1b 0.6 %; HEMOGLOBIN Ao 86.4 %; HEMOGLOBIN F 0.9 %; HEMOGLOBIN LA1C 1.8 %; HEMOGLOBIN P3 3.2 %
[2016-12-19] VITALS (8 sets, daily range): BP systolic 146–187; BP diastolic 78–99; PULSE 80–93; RESP 18–21; TEMP 97.5–98.4; O2SAT 99–100
[2016-12-19] MEDS: VANCOMYCIN INJ 1,500 MG in SODIUM CHLORID 0.9% 500 ML INJ 500 ML IV SCH (00:10)
[2016-12-19] MEDS: PIPERACIL-TAZO 3.375 GM PREMIX 50 ML IV SCH ×4 (02:03→20:51)
[2016-12-19] MEDS: SODIUM CHLORIDE 0.9% FLUSH 5 ML FLUSH IV FLUSH SCH ×2 (09:00→20:52)
[2016-12-19 09:58] LABS: HEMATOCRIT 32.9 % (39.0-51.0); MEAN CELL VOLUME 96.4 FL (80.0-100.0); MEAN CORPUSCULAR HEMOGLOBIN 33.3 PG (27.0-34.0); MEAN CORPUSCULAR HGB CONC 34.5 % (32.0-36.0); PLATELET COUNT 207 TH/MM3 (150-450); RED BLOOD COUNT 3.42 MIL/MM3 (4.50-5.90); RED CELL DISTRIBUTION WIDTH 16.4 % (11.6-17.2); REVIEW FLAG FINAL; WHITE BLOOD COUNT 9.5 TH/MM3 (4.0-11.0)
[2016-12-19 10:06] LABS: PROTHROMBIN TIME - PATIENT 22.6 SEC (9.8-11.6)
[2016-12-19 10:28] LABS: POTASSIUM 4.3 MEQ/L (3.5-5.1)
[2016-12-19] MEDS: FOLIC ACID 1 MG TAB PO SCH (10:40)
[2016-12-19] MEDS: DOCUSATE SODIUM 50 MG/SENNA 8.6 MG TAB PO SCH ×2 (10:40→20:52)
[2016-12-19] MEDS: MULTIVITAMIN TAB PO SCH (10:40)
[2016-12-19] MEDS: THIAMINE HCL 100 MG TAB PO SCH (10:40)
[2016-12-19] MEDS: FERROUS SULFATE 325 MG (65 MG ELEMENTAL IRON) TAB PO SCH (10:41)
[2016-12-19] MEDS: ASPIRIN 81 MG CHEW TAB PO SCH (10:41)
[2016-12-19] MEDS: LISINOPRIL 5 MG TAB PO SCH (10:41)
[2016-12-19] MEDS ORDERED: PHARMACY ORDERED LAB ONE (11:45)
--- NOTE | 2016-12-19 12:00 | HHI.FPPN ---
Subjective Remarks Patient seen and examined this morning. No acute event overnight. States he feels "100% better." No chest pain, abdominal pain, difficulty breathing, pain or warmth in legs. Objective Vitals Vital Signs Date Time Temp Pulse Resp B/P (MAP) Pulse Ox O2 Delivery O2 Flow Rate FiO2 12/19/16 08:00 97.7 80 19 185/88 (120) 99 12/19/16 04:00 Room Air 12/19/16 04:00 97.7 91 21 165/94 (117) 100 12/19/16 00:00 98.4 82 18 148/78 (101) 100 12/19/16 00:00 Room Air 12/18/16 20:30 88 12/18/16 20:00 Room Air 12/18/16 20:00 97.5 78 21 156/70 (98) 100 12/18/16 19:40 97.7 82 20 150/68 (95) 100 12/18/16 16:00 97.9 80 18 172/92 (118) 100 12/18/16 12:10 98.4 69 18 148/69 (95) 100 I/O 12/18/16 12/18/16 12/18/16 12/19/16 12/19/16 12/19/16 07:00 15:00 23:00 07:00 15:00 23:00 Intake Total 1304 ml 1975 ml 805 ml Output Total 500 ml 600 ml 400 ml Balance 804 ml 1375 ml 405 ml Intake Oral 480 ml 360 ml 240 ml IV Total 824 ml 1615 ml 565 ml Output Urine Total 500 ml 600 ml 400 ml # Bowel Movements 0 1 0 Result Diagram: 12/19/1614 12/19/16 0914 Imaging Last 48 hours Impressions Neck CTA 12/18/16 0000 Signed Impressions: Service Date/Time: Sunday, December 18, 2016 18:05 - CONCLUSION: 1. Prominent calcified plaques are noted at both bifurcations. 2. Mild narrowing at the origin of the left internal carotid artery. 3. No focal high-grade stenosis is demonstrated. Anjel Mayfield MD Head Magnetic Resonance Angiography 12/18/16 0000 Signed Impressions: Service Date/Time: Sunday, December 18, 2016 08:19 - CONCLUSION: 1. Unremarkable MRA examination of the brain. Avelino Nieto MD Brain MRI 12/18/16 Signed Impressions: Service Date/Time: Sunday, December 18, 2016 08:19 - CONCLUSION: 1. Stable mild diffuse ventriculomegaly out of proportion to the degree of atrophy. Correlation for normal pressure hydrocephalus is recommended. 2. No acute ischemia or other acute intracranial abnormality. Avelino Nieto MD Objective Remarks GENERAL: Well-nourished elderly male patient lying in bed, in no apparent distress. SKIN: Warm and dry. Skin is notable for right medial and left lateral ulcers approximately 3 x 1 inches each, shallow, with surrounding hyperpigmentation up to the level of the knee and down to the foot. There is no hair on the legs. B/l leg wounds are currently wrapped with clean dry gauze HEAD: Atraumatic. Normocephalic. EYES: PERRL. EOMI. No scleral icterus. Mild conjunctival injection noted. ENT: No nasal bleeding or discharge. Mucous membranes pink and moist. NECK: Trachea midline. No JVD. CARDIOVASCULAR: Irregular rhythm. 2/6 systolic murmur at upper sternal border. RESPIRATORY: No accessory muscle use. Clear to auscultation. Breath sounds equal bilaterally. GASTROINTESTINAL: Abdomen soft, non-tender, obese. Bowel sounds normal. MUSCULOSKELETAL: Extremities with mild swelling, see skin above. No clubbing, cyanosis. NEUROLOGICAL: Awake and alert. 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 Motor grossly within normal limits. Normal speech. PSYCHIATRIC: Appropriate mood and affect; insight and judgment normal. Medications and IVs Last 48 hours Impressions Neck CTA 12/18/16 Signed Impressions: Service Date/Time: Sunday, December 18, 2016 18:05 - CONCLUSION: 1. Prominent calcified plaques are noted at both bifurcations. 2. Mild narrowing at the origin of the left internal carotid artery. 3. No focal high-grade stenosis is demonstrated. Anjel Mayfield MD Head Magnetic Resonance Angiography 12/18/16 Signed Impressions: Service Date/Time: Sunday, December 18, 2016 08:19 - CONCLUSION: 1. Unremarkable MRA examination of the brain. Avelino Nieto MD Brain MRI 12/18/16 Signed Impressions: Service Date/Time: Sunday, December 18, 2016 08:19 - CONCLUSION: 1. Stable mild diffuse ventriculomegaly out of proportion to the degree of atrophy. Correlation for normal pressure hydrocephalus is recommended. 2. No acute ischemia or other acute intracranial abnormality. Avelino Nieto MD A/P Assessment and Plan Patient is a 71-year-old male with history significant for hypertension, diabetes, hyperlipidemia, alcohol abuse, A. fib who presents with 2 day history of malaise and weakness. CT was notable for enlarged ventricles, no evidence of acute bleed. Neurologic exam is unremarkable. Clinically, differential for patient's symptoms are broad, however, given that he meets SIRS criteria on admission based on leukocytosis and tachycardia, infection is likely playing a role. Source is likely lower extremity wounds. ED course: Patient received 1 L bolus normal saline, IV access, basic labs, blood cultures, chest x-ray, urinalysis. CT brain was also performed. Lactic acid performed and normal. He was started on Vancomycin and Zosyn empirically. Discharge Planning Anticipate discharge after workup by neuro and antibiotic recommendation by ID. Likely 1-2 days. Problem List: (1) Bilateral leg ulcer ICD Codes: L97.919 - Non-pressure chronic ulcer of unspecified part of right lower leg with unspecified severity; L97.929 - Non-pressure chronic ulcer of unspecified part of left lower leg with unspecified severity Status: Acute Plan: Patient has multiple chronic wounds on the lower extremities. He has been managed via home health nursing for many months. He has no acute symptoms related to these ulcers. Likely source of infection, as chest x ray with no signs of pneumonia and UA with negative nitrites and leukocyte esterase. * Wound culture obtained * Blood culture with Staph coag -, and Gram positive cocci in clusters and pairs * ID consulted * Wound culture with proteus * Wound care consult * Keep wounds clean and dry * Monitor for signs of acute infection Imaging: Lower extremity ultrasound: No evidence of DVT, nonspecific right inguinal adenopathy with the largest of done measuring 3.6 cm Medications: Vancomycin 1500 mg BID, pharmacy consulted Zosyn 3.375 g every 6 hours Labs and blood cultures to be repeated if there are signs/symptoms concerning for an acute infection (2) Weakness generalized ICD Codes: R53.1 - Weakness; L97.929 - Non-pressure chronic ulcer of unspecified part of left lower leg with unspecified severity Status: Acute Plan: Patient presented with generalized weakness with a broad differential including NPH, sepsis, CVA, TIA, electrolyte abnormality, hypoglycemia. Chronicity of symptoms place patient outside of any stroke treatment windows. Glucose was normal on admission. CT head does show evidence of enlarged ventricles though patient has no evidence of altered mental status or urinary incontinence. * Acute CVA ruled out, see imaging results below * PT evaluation * Aspirin * Continue warfarin, see Atrial fibrillation * Lipid profile within normal limits * Hemoglobin A1c pending * ACS rule out negative * Will DC Accu-Cheks as blood sugars have been within normal limits * Neurology is consulted to assist in medical management, appreciate recs regarding further workup though symptoms may be related to sepsis * CTA neck ordered to further evaluate carotid stenosis Imaging: Brain MRI: Stable mild diffuse ventriculomegaly out of proportion to the degree of atrophy. Correlation for normal pressure hydrocephalus is recommended. No acute ischemic or other acute intracranial abnormality Brain MRA: Unremarkable exam Head CT: Possible normal pressure hydrocephalus. No evidence of acute cranial pathology. No masses identified. Carotid artery ultrasound: Moderate right carotid bifurcation stenosis suspected. CT of the carotids recommended. (3) Atrial fibrillation with normal ventricular rate ICD Codes: I48.91 - Unspecified atrial fibrillation Status: Chronic Plan: Patient with chronic history of A. fib on warfarin, rate controlled * Monitor on telemetry * Monitor for RVR, if noted will treat accordingly * Continue home Warfarin, pharmacy consulted (4) Cardiomegaly ICD Codes: I51.7 - Cardiomegaly Status: Acute Plan: Patient notes have significant cardiomegaly on CXR, and this may related to CHF, pericardial effusion, etc. We'll order 2-D echo to further elucidate. -F/U Echo (5) HTN (hypertension) ICD Codes: I10 - Essential (primary) hypertension Status: Chronic Plan: Chronic hypertension, we'll treat with low-dose lisinopril and PRN Vasotec (6) Alcohol use ICD Codes: Z78.9 - Other specified health status Status: Chronic Plan: Chronic alcohol overuse. Patient counseled regarding alcohol cessation [facility] protocol. Rally pack. (7) Fluids/Electrolytes/Nutrition/Prophylaxis Status: Acute Plan: Fluids:None Electrolytes: monitor and replete as needed Nutrition: Diabetic diet DVT Prophylaxis: Warfarin GI Prophylaxis: None indicated Problem Qualifiers (1) Bilateral leg ulcer: Qualified Codes: L97.912 - Non-pressure chronic ulcer of unspecified part of right lower leg with fat layer exposed; L97.922 - Non-pressure chronic ulcer of unspecified part of left lower leg with fat layer exposed (2) HTN (hypertension): Qualified Codes: I10 - Essential (primary) hypertension Miguelito Hatfield MD R1 Dec 19, 2016 12:00
[2016-12-19] MEDS: WARFARIN SOD 5 MG TAB PO SCH (17:03)
--- NOTE | 2016-12-19 17:51 | ECHRPT ---
Indication: cva/tia CONCLUSIONS Normal left ventricular size. Wall thickness is normal. The left ventricular systolic function is normal with an estimated ejection fraction in the range of 55-60%. The right atrial size is mildly dilated. Mitral annular calcification is present. [id number] mitral valve regurgitation. Mild thickening of the mitral valve leaflets. Mild to moderate aortic valve stenosis. Trace aortic valve regurgitation. Aortic valve area is 1 cm. Aortic valve mean gradient is 21 mmHg. There is mild to moderate tricuspid valve regurgitation. The estimated pulmonary arterial pressure is 51 mmHg. BP: 139 / 74 HR: 80 Rhythm: MEASUREMENTS (Male / Female) Normal Values Technical Quality: 2D ECHO LV Diastolic Diameter PLAX 4.8 cm 4.2 - 5.9 / 3.9 - 5.3 cm LV Systolic Diameter PLAX 3.5 cm IVS Diastolic Thickness 0.9 cm 0.6 - 1.0 / 0.6 - 0.9 cm LVPW Diastolic Thickness 1.0 cm 0.6 - 1.0 / 0.6 - 0.9 cm LV Relative Wall Thickness 0.4 LVOT Diameter 2.0 cm LA Systolic Diameter LX 3.9 cm 3.0 - 4.0 / 2.7 - 3.8 cm DOPPLER AV Peak Velocity 347.0 cm/s AV Peak Gradient 48.2 mmHg AV Mean Gradient 21.0 mmHg AV Velocity Time Integral 73.7 cm LVOT Peak Velocity 105.0 cm/s LVOT Peak Gradient 4.4 mmHg LVOT Velocity Time Integral 24.1 cm LVOT Cardiac Index 3062.6 cm/minm AV Area Cont Eq vti 1.0 cm AV Area Cont Eq pk 1.0 cm MV Peak Velocity 179.5 cm/s MV Peak Gradient 12.9 mmHg MV Mean Velocity 79.1 cm/s MV Mean Gradient 3.5 mmHg MR Peak Velocity 318.0 cm/s MR Peak Gradient 40.4 mmHg TR Peak Velocity 356.0 cm/s TR Peak Gradient 50.7 mmHg FINDINGS LEFT VENTRICLE Normal left ventricular size. Wall thickness is normal. The left ventricular systolic function is normal with an estimated ejection fraction in the range of 55-60%. RIGHT VENTRICLE Normal right ventricular size and systolic function. LEFT ATRIUM The left atrial size is normal. RIGHT ATRIUM The right atrial size is mildly dilated. ATRIAL SEPTUM Normal atrial septal thickness without atrial level shunting by limited color doppler interrogation. AORTA The aortic root and proximal ascending aorta are normal in size on limited imaging. MITRAL VALVE Mitral annular calcification is present. [id number] mitral valve regurgitation. Mild thickening of the mitral valve leaflets. AORTIC VALVE Mild to moderate aortic valve stenosis. Trace aortic valve regurgitation. Aortic valve area is 1 cm. Aortic valve mean gradient is 21 mmHg. TRICUSPID VALVE There is mild to moderate tricuspid valve regurgitation. The estimated pulmonary arterial pressure is 51mmHg. PULMONARY VALVE The pulmonary valve is not well visualized. VESSELS The inferior vena cava is normal in size. PERICARDIUM No pericardial effusion. Jojo Tian MD, FACC (Electronically Signed) Final Date:19 December 2016 17:50
[2016-12-19] MEDS: VANCOMYCIN INJ 1,250 MG in SODIUM CHLOR 0.9% 250 ML INJ 250 ML IV SCH (18:00)
[2016-12-20] VITALS (8 sets, daily range): BP systolic 124–183; BP diastolic 56–94; PULSE 76–85; RESP 16–20; TEMP 97.3–97.9; O2SAT 98–99
[2016-12-20] MEDS: PIPERACIL-TAZO 3.375 GM PREMIX 50 ML IV SCH ×3 (00:48→12:15)
[2016-12-20] MEDS: VANCOMYCIN INJ 1,250 MG in SODIUM CHLOR 0.9% 250 ML INJ 250 ML IV SCH ×2 (05:16→17:13)
[2016-12-20 07:32] LABS: AUTOMATED NEUTROPHIL # 4.5 TH/MM3 (1.8-7.7); BASOPHIL # 0.1 TH/MM3 (0-0.2); BASOPHIL % 1.1 % (0.0-2.0); EOSINOPHIL # 0.6 TH/MM3 (0-0.4); EOSINOPHIL % 8.7 % (0.0-4.0); HEMATOCRIT 30.6 % (39.0-51.0); HEMO FLAGS DIFF FINAL; LYMPH % 14.2 % (9.0-44.0); LYMPHOCYTE # 0.9 TH/MM3 (1.0-4.8); MEAN CELL VOLUME 95.3 FL (80.0-100.0); MEAN CORPUSCULAR HGB CONC 34.6 % (32.0-36.0); MONO % 6.6 % (0.0-8.0); NEUT % 69.4 % (16.0-70.0); PLATELET COUNT 184 TH/MM3 (150-450); RED BLOOD COUNT 3.21 MIL/MM3 (4.50-5.90); RED CELL DISTRIBUTION WIDTH 16.4 % (11.6-17.2); WHITE BLOOD COUNT 6.5 TH/MM3 (4.0-11.0)
[2016-12-20 07:49] LABS: INTERNATIONAL NORMALIZED RATIO 2.1 RATIO; PROTHROMBIN TIME - PATIENT 24.1 SEC (9.8-11.6)
[2016-12-20 08:09] LABS: ALT (GPT) 17 U/L (12-78); ANION GAP 8 MEQ/L (5-15); AST (GOT) 19 U/L (15-37); BICARBONATE 24.6 MEQ/L (21.0-32.0); BLOOD UREA NITROGEN 11 MG/DL (7-18); CHLORIDE 100 MEQ/L (98-107); GLOMERULAR FILTRATION RATE 143 ML/MIN (>89); MAGNESIUM 1.8 MG/DL (1.5-2.5); POTASSIUM 3.7 MEQ/L (3.5-5.1); SODIUM (NA) 133 MEQ/L (136-145)
[2016-12-20 08:35] LABS: ALKALINE PHOSPHATASE 84 U/L (45-117); TOTAL BILIRUBIN ADULT 0.6 MG/DL (0.2-1.0)
[2016-12-20] MEDS: FERROUS SULFATE 325 MG (65 MG ELEMENTAL IRON) TAB PO SCH (09:08)
[2016-12-20] MEDS: DOCUSATE SODIUM 50 MG/SENNA 8.6 MG TAB PO SCH ×2 (09:08→20:22)
[2016-12-20] MEDS: FOLIC ACID 1 MG TAB PO SCH (09:08)
[2016-12-20] MEDS: ASPIRIN 81 MG CHEW TAB PO SCH (09:08)
[2016-12-20] MEDS: THIAMINE HCL 100 MG TAB PO SCH (09:08)
[2016-12-20] MEDS: MULTIVITAMIN TAB PO SCH (09:08)
[2016-12-20] MEDS: LISINOPRIL 10 MG TAB PO SCH (09:08)
[2016-12-20] MEDS: SODIUM CHLORIDE 0.9% FLUSH 5 ML FLUSH IV FLUSH SCH ×2 (09:09→20:21)
[2016-12-20] MEDS ORDERED: RESP: ALBUTEROL 2.5 MG/IPRATROPIUM 0.5 MG NEB (PRN) NEB (09:30)
[2016-12-20] MEDS ORDERED: ARTIFICIAL TEARS OPTH SOLN 15 ML BTL EACH EYE PRN (09:30)
--- NOTE | 2016-12-20 09:41 | PD.ID.CON ---
History of Present Illness Service ID Consult Requested By Dr Hatfield Reason for Consult bactermeia Primary Care Physician [facility] Diagnoses: History of Present Illness 71-year-old malewith h/o hypertension, diabetes, hyperlipidemia complains generalized malaise and weakness. On admission low grade temps 99.5 and leukocytosis (WBC 21K) Has a chronic leg ulcers for which he receiveing [place] home health Clx obtained in the hospital grew GAS in one of the wounds, GDEnt and MSSA in another US showed right inguinal adenopathy with the largest lymph node measuring 3.6 cm Blood clx with coag- egative staph / 2 D echo with [id number] , no vegetaions Review of Systems ROS Limitations: Poor Historian Except as stated in HPI: all other systems reviewed are Neg Past Family Social History Allergies: Coded Allergies: No Known Allergies (Unverified , 12/17/16) Past Medical History Chronic LE ulcers - 6 years, HTN Atrial fibrillation Hypercholesterolemia DM - diet controlled Hx cervical fracture Cirrhosis? Past Surgical History Left knee reconstruction - 7 yrs ago Active Ordered Medications Medications where reviewed in EMR Antibiotics Include: vancomycin Family History Mother: TB Father: pacemaker for unknown reason Sibling: healthy No children Social History Smoke: 1 cigar per week Alcohol: heavy drinker in past, drinks 3-4 beers daily (8oz) Illicit drugs: denies Moved from [place] 1 month ago Service: [employer] Physical Exam Vital Signs Vital Signs Date Time Temp Pulse Resp B/P (MAP) Pulse Ox O2 Delivery O2 Flow Rate FiO2 12/20/16 07:00 97.5 77 16 178/81 (113) 99 12/20/16 04:50 148/72 (97) 12/20/16 03:40 97.9 84 16 179/94 (122) 99 12/20/16 00:00 97.3 77 17 162/73 (102) 98 12/20/16 00:00 Room Air 12/19/16 20:30 158/86 (110) 12/19/16 20:00 97.8 84 18 164/97 (119) 100 12/19/16 20:00 85 12/19/16 20:00 Room Air 12/19/16 18:45 97.7 86 18 187/99 (128) 100 12/19/16 16:00 98.0 82 20 174/91 (118) 100 12/19/16 12:00 97.5 93 19 146/91 (109) 99 Physical Exam CONSTITUTIONAL/GENERAL: This is an adequately nourished patient, in no apparent distress. TUBES/LINES/DRAINS: SKIN: No jaundice, rashes, or lesions. Ecchymoses on upper extremities. No wounds seen anteriorly. Skin temperature appropriate. Not diaphoretic. HEAD: Atraumatic. Normocephalic. EYES: Pupils equal and round and reactive. Extraocular motions intact. No scleral icterus. No injection or drainage. Fundi not examined. ENT: Hearing grossly normal. Nose without bleeding or purulent drainage. Oral mucosae moist without visible erythema, exudates, masses, or lesions. NECK: Trachea midline. Supple, nontender. CARDIOVASCULAR: Regular rate and rhythm without murmurs, gallops, or rubs. No JVD. Peripheral pulses symmetric. RESPIRATORY/CHEST: Symmetric, unlabored respirations. Clear to auscultation. Breath sounds equal bilaterally. No wheezes, rales, or rhonchi. GASTROINTESTINAL: Abdomen soft, non-tender, mildly distended. No hepato- splenomegaly, or palpable masses. No guarding. Bowel sounds present. GENITOURINARY: Without palpable bladder distension. MUSCULOSKELETAL: Extremities without clubbing, cyanosis, + chronic appearing edema with dark diiscoloration cw long standing venostasit Clean based partial thickness ulcerations on b/l shins with minimal odorless serosangious dc on the dressings Some erythema , very mild present on RLE . No joint tenderness or effusion noted. No calf tenderness. No mottling or clubbing. LYMPHATICS: No palpable cervical or supraclavicular adenopathy. + R inguinal lymphadenopathy NEUROLOGICAL: Awake and alert. Motor and sensory grossly within normal limits. Follows commands. Clear speech . Moves all extremities. PSYCHIATRIC: No obvious anxiety/depression. no apparent hallucinations or other psychotic thought process. Laboratory Laboratory Tests Test 12/20/16 05:41 White Blood Count 6.5 Red Blood Count 3.21 Hemoglobin 10.6 Hematocrit 30.6 Mean Corpuscular Volume 95.3 Mean Corpuscular Hemoglobin 33.0 Mean Corpuscular Hemoglobin Concent 34.6 Red Cell Distribution Width 16.4 Platelet Count 184 Mean Platelet Volume 7.2 Neutrophils (%) (Auto) 69.4 Lymphocytes (%) (Auto) 14.2 Monocytes (%) (Auto) 6.6 Eosinophils (%) (Auto) 8.7 Basophils (%) (Auto) 1.1 Neutrophils # (Auto) 4.5 Lymphocytes # (Auto) 0.9 Monocytes # (Auto) 0.4 Eosinophils # (Auto) 0.6 Basophils # (Auto) 0.1 CBC Comment DIFF FINAL Differential Comment Prothrombin Time 24.1 Prothromb Time International Ratio 2.1 Blood Urea Nitrogen 11 Creatinine 0.56 Random Glucose 100 Total Protein 6.8 Albumin 2.2 Calcium Level 8.1 Magnesium Level 1.8 Alkaline Phosphatase 84 Aspartate Amino Transf (AST/SGOT) 19 Alanine Aminotransferase (ALT/SGPT) 17 Total Bilirubin 0.6 Sodium Level 133 Potassium Level 3.7 Chloride Level 100 Carbon Dioxide Level 24.6 Anion Gap 8 Estimat Glomerular Filtration Rate 143 Date/Time Source Procedure Growth Status 12/17/16 19:18 Blood Peripheral Aerobic Blood Culture - Preliminary Staph Sp Coagulase Negative Resulted 12/17/16 19:18 Anaerobic Blood Culture - Preliminary Gram Positive Cocci Resulted 12/18/16 17:27 Sputum Expectorated Sputum Gram Stain - Final Resulted 12/18/16 17:27 Sputum Expectorated Sputum Sputum Culture - Preliminary LIGHT GROWTH NORMAL RESPIRATORY VIKTORIYA... Resulted 12/18/16 17:27 Urine Clean Catch Urine Culture - Final NO GROWTH IN 48 HOURS. Complete 12/18/16 16:29 Wound Leg Gram Stain - Final Resulted 12/18/16 16:29 Wound Culture - Preliminary Gram Positive Cocci Resulted Result Diagram: 12/20/16 0541 12/20/16 0541 Imaging Last Impressions Neck CTA 12/18/16 0000 Signed Impressions: Service Date/Time: Sunday, December 18, 2016 18:05 - CONCLUSION: 1. Prominent calcified plaques are noted at both bifurcations. 2. Mild narrowing at the origin of the left internal carotid artery. 3. No focal high-grade stenosis is demonstrated. Anjel Mayfield MD Head Magnetic Resonance Angiography 12/18/16 0000 Signed Impressions: Service Date/Time: Sunday, December 18, 2016 08:19 - CONCLUSION: 1. Unremarkable MRA examination of the brain. Avelino Nieto MD Brain MRI 12/18/16 0000 Signed Impressions: Service Date/Time: Sunday, December 18, 2016 08:19 - CONCLUSION: 1. Stable mild diffuse ventriculomegaly out of proportion to the degree of atrophy. Correlation for normal pressure hydrocephalus is recommended. 2. No acute ischemia or other acute intracranial abnormality. Avelino Nieto MD Head CT 12/17/161708 Signed Impressions: Service Date/Time: Saturday, December 17, 2016 18:00 - CONCLUSION: 1. Possible normal pressure hydrocephalus. Correlation with clinical findings is necessary. No evidence of acute intracranial pathology. No masses are identified. Nehemiah Richmond MD Chest X-Ray 12/17/161708 Signed Impressions: Service Date/Time: Saturday, December 17, 2016 17:16 - CONCLUSION: 1. Compensated cardiomegaly, as above. Avelino Nieto MD Lower Extremity Ultrasound 12/17/16 0000 Signed Impressions: Service Date/Time: Saturday, December 17, 2016 22:05 - CONCLUSION: 1. No evidence of deep venous thrombosis. 2. Nonspecific right inguinal adenopathy with the largest lymph node measuring 3.6 cm Nehemiah Richmond MD Carotid Artery Ultrasound 12/17/16 0000 Signed Impressions: Service Date/Time: Saturday, December 17, 2016 21:46 - CONCLUSION: Moderate right carotid bifurcation stenosis suspected. Recommend further anatomic evaluation with CTA examination of the arch and carotids. Jefe Paris MD Assessment and Plan Assessment and Plan Coag negative bacteremia, high grade - significance not clear at this point; if different morphology probaly not suignificant BLE chronic venostasis ulcerations RLE cellulitis ETOH liver cirrhosis REC's: cont vancomycin dc zosyn fu blood clx untill final Charlene Liz MD Dec 20, 2016 09:41
--- NOTE | 2016-12-20 11:28 | HHI.FPPN ---
Subjective Remarks Patient seen and examined this morning. Currently feeling well. No acute events overnight. Denies chest pain, palpitations, abdominal pain, shortness of breath , pain in legs. Eating well, no change in bladder habits. Noted one loose stool yesterday, mostly formed, normal in color. Objective Vitals Vital Signs Date Time Temp Pulse Resp B/P (MAP) Pulse Ox O2 Delivery O2 Flow Rate FiO2 12/20/16 11:08 80 12/20/16 09:24 Room Air 12/20/16 07:00 97.5 77 16 178/81 (113) 99 12/20/16 04:50 148/72 (97) 12/20/16 03:40 97.9 84 16 179/94 (122) 99 12/20/16 00:00 97.3 77 17 162/73 (102) 98 12/20/16 00:00 Room Air 12/19/16 20:30 158/86 (110) 12/19/16 20:00 97.8 84 18 164/97 (119) 100 12/19/16 20:00 85 12/19/16 20:00 Room Air 12/19/16 18:45 97.7 86 18 187/99 (128) 100 12/19/16 16:00 98.0 82 20 174/91 (118) 100 12/19/16 12:00 97.5 93 19 146/91 (109) 99 I/O 12/19/16 12/19/16 12/19/16 12/20/16 12/20/16 12/20/16 07:00 15:00 23:00 07:00 15:00 23:00 Intake Total 805 ml 50 ml 262.5 ml 600 ml Output Total 400 ml 200 ml 1075 ml Balance 405 ml 50 ml 62.5 ml -475 ml Intake Oral 240 ml 600 ml IV Total 565 ml 50 ml 262.5 ml Output Urine Total 400 ml 200 ml 1075 ml # Voids 4 # Bowel Movements 0 4 Result Diagram: 12/20/1654012/20/16540 Objective Remarks GENERAL: Well-nourished elderly male patient lying in bed, in no apparent distress. SKIN: Warm and dry. Skin is notable for right medial and left lateral ulcers approximately 3 x 1 inches each, shallow, with surrounding hyperpigmentation up to the level of the knee and down to the foot, red beefy tissue without discharge present. There is no hair on the legs. B/l leg wounds are currently wrapped with clean dry gauze, removed to examine HEAD: Atraumatic. Normocephalic. EYES: PERRL. EOMI. No scleral icterus. Mild conjunctival injection noted. ENT: No nasal bleeding or discharge. Mucous membranes pink and moist. NECK: Trachea midline. No JVD. CARDIOVASCULAR: Irregular rhythm. 2/6 systolic murmur at upper sternal border. RESPIRATORY: No accessory muscle use. Clear to auscultation. Breath sounds equal bilaterally. GASTROINTESTINAL: Abdomen soft, non-tender, obese. Bowel sounds normal. MUSCULOSKELETAL: Extremities with mild swelling, see skin above. No clubbing, cyanosis. NEUROLOGICAL: Awake and alert. 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 Motor grossly within normal limits. Normal speech. PSYCHIATRIC: Appropriate mood and affect; insight and judgment normal. Medications and IVs Current Medications Medications (Trade) Dose Ordered Sig/Gale Route Start Time Stop Time Status Last Admin (Tylenol) 650 mg Q4H PRN PO 12/17/16 19:45 (Zofran Inj) 4 mg Q6H PRN IVP 12/17/16 19:45 (Narcan Inj) 0.4 mg UNSCH PRN IV PUSH 12/17/16 19:45 (Denise-Colace) 1 tab BID PO 12/17/16 21:00 12/20/16 09:08 (Milk Of Magnesia Liq) 30 ml Q12H PRN PO 12/17/16 19:45 (Senokot) 17.2 mg Q12H PRN PO 12/17/16 19:45 (Dulcolax Supp) 10 mg DAILY PRN RECTAL 12/17/16 19:45 (Lactulose Liq) 30 ml DAILY PRN PO 12/17/16 19:45 (NS Flush) 2 ml BID IV FLUSH 12/17/16 21:00 12/19/16 20:52 (NS Flush) 2 ml UNSCH PRN IV FLUSH 12/17/16 20:00 (Aspirin Chew) 81 mg DAILY PO 12/18/16 09:00 12/20/16 09:08 (Romazicon Inj) 0.2 mg Q1M PRN IV PUSH 12/17/16 20:00 (Ativan) 1 mg Q4H PRN PO 12/17/16 20:00 (Ativan Inj) 1 mg Q4H PRN IV PUSH 12/17/16 20:00 (Ativan) 2 mg Q2H PRN PO 12/17/16 20:00 (Ativan Inj) 2 mg Q2H PRN IV PUSH 12/17/16 20:00 (Ativan Inj) 2 mg Q1H PRN IV PUSH 12/17/16 20:00 (Ativan Inj) 2 mg Q15M PRN IV PUSH 12/17/16 20:00 (Coumadin) 5 mg DAILY@1600 PO 12/18/16 16:00 12/19/16 17:03 (Ferrous Sulfate) 325 mg DAILY PO 12/18/16 09:00 12/20/16 09:08 Pharmacy Profile Note 0 ml @ 0 mls/hr UNSCH OTHER 12/17/16 22:30 Piperacillin Sod/ Tazobactam Sod 50 ml @ 100 mls/hr Q6H IV 12/18/16 01:15 12/20/16 06:31 (Vasotec Inj) 1.25 mg Q6H PRN IV PUSH 12/17/16 22:30 (Theragran) 1 tab DAILY PO 12/18/16 09:00 12/20/16 09:08 (Vitamin B1) 100 mg DAILY PO 12/18/16 09:00 12/20/16 09:08 (Folate) 1 mg DAILY PO 12/18/16 09:00 12/20/16 09:08 (Catapres) 0.1 mg Q6H PRN PO 12/18/16 00:15 12/20/16 03:50 Pharmacy Profile Note 0 ml @ 0 mls/hr UNSCH OTHER 12/18/16 14:30 Vancomycin HCl 1250 mg/Sodium Chloride 262.5 ml @ 250 mls/hr Q12H IV 12/19/16 18:00 12/20/16 05:16 Miscellaneous Information SPECIFIC LAB TO BE DRAWN:VANCOMYCIN TROUGH DATE TO... ONCE ONCE .XX 12/21/16 05:45 12/21/16 05:46 (Prinivil) 10 mg DAILY PO 12/20/16 09:00 12/20/16 09:08 (Tears Naturale Opth Soln) 1 drop Q4H PRN EACH EYE 12/20/16 09:30 (Duoneb Neb) 1 ampule Q8HR NEB PRN NEB 12/20/16 09:30 A/P Assessment and Plan Patient is a 71-year-old male with history significant for hypertension, diabetes, hyperlipidemia, alcohol abuse, A. fib who presents with 2 day history of malaise and weakness. CT was notable for enlarged ventricles, no evidence of acute bleed. Neurologic exam is unremarkable. Clinically, differential for patient's symptoms are broad, however, given that he meets SIRS criteria on admission based on leukocytosis and tachycardia, infection is likely playing a role. Source is likely lower extremity wounds. ED course: Patient received 1 L bolus normal saline, IV access, basic labs, blood cultures, chest x-ray, urinalysis. CT brain was also performed. Lactic acid performed and normal. He was started on Vancomycin and Zosyn empirically. Discharge Planning Anticipate discharge after workup by neuro and antibiotic recommendation by ID. Likely 1-2 days. Problem List: (1) Bilateral leg ulcer ICD Codes: L97.919 - Non-pressure chronic ulcer of unspecified part of right lower leg with unspecified severity; L97.929 - Non-pressure chronic ulcer of unspecified part of left lower leg with unspecified severity Status: Acute Plan: Patient has multiple chronic wounds on the lower extremities. He has been managed via home health nursing for many months. He has no acute symptoms related to these ulcers. Likely source of infection, as chest x ray with no signs of pneumonia and UA with negative nitrites and leukocyte esterase. Symptomatically improving. * Wound culture obtained * Blood culture with Staph coag -, and Gram positive cocci in clusters and pairs * Wound culture with proteus * ID consulted * Wound care consult * Keep wounds clean and dry * Monitor for signs of acute infection Imaging: Lower extremity ultrasound: No evidence of DVT, nonspecific right inguinal adenopathy with the largest of done measuring 3.6 cm Medications: Vancomycin 1500 mg BID, pharmacy consulted Zosyn 3.375 g every 6 hours Labs and blood cultures to be repeated if there are signs/symptoms concerning for an acute infection (2) Weakness generalized ICD Codes: R53.1 - Weakness; L97.929 - Non-pressure chronic ulcer of unspecified part of left lower leg with unspecified severity Status: Acute Plan: Patient presented with generalized weakness with a broad differential including NPH, sepsis, CVA, TIA, electrolyte abnormality, hypoglycemia. Chronicity of symptoms place patient outside of any stroke treatment windows. Glucose was normal on admission. CT head does show evidence of enlarged ventricles though patient has no evidence of altered mental status or urinary incontinence. * Acute CVA ruled out, see imaging results below * PT evaluation * Aspirin * Continue warfarin, see Atrial fibrillation * Lipid profile within normal limits * Hemoglobin A1c pending * ACS rule out negative * Will DC Accu-Cheks as blood sugars have been within normal limits * Neurology is consulted to assist in medical management, appreciate recs regarding further workup though symptoms may be related to sepsis * CTA neck shows no focal high grade stenosis Imaging: Brain MRI: Stable mild diffuse ventriculomegaly out of proportion to the degree of atrophy. Correlation for normal pressure hydrocephalus is recommended. No acute ischemic or other acute intracranial abnormality Brain MRA: Unremarkable exam Head CT: Possible normal pressure hydrocephalus. No evidence of acute cranial pathology. No masses identified. Carotid artery ultrasound: Moderate right carotid bifurcation stenosis suspected. CT of the carotids recommended. (3) Atrial fibrillation with normal ventricular rate ICD Codes: I48.91 - Unspecified atrial fibrillation Status: Chronic Plan: Patient with chronic history of A. fib on warfarin, rate controlled * Monitor on telemetry * Monitor for RVR, if noted will treat accordingly * Continue home Warfarin, pharmacy consulted (4) Cardiomegaly ICD Codes: I51.7 - Cardiomegaly Status: Acute Plan: Patient notes have significant cardiomegaly on CXR, and this may related to CHF, pericardial effusion, etc. We'll order 2-D echo to further elucidate. -Echo EF 55-60%, aortic valve area 1 cm which should be followed outpatient. Mild to moderate aortic stenosis, trace aortic regurgitation, trace to mild mitral valve regurgitation, [id number] tricuspid valve regurgitation. (5) HTN (hypertension) ICD Codes: I10 - Essential (primary) hypertension Status: Chronic Plan: Chronic hypertension, treat with low-dose lisinopril and PRN Vasotec (6) Alcohol use ICD Codes: Z78.9 - Other specified health status Status: Chronic Plan: Chronic alcohol overuse. Patient counseled regarding alcohol cessation CIWA protocol. Rally pack. (7) Fluids/Electrolytes/Nutrition/Prophylaxis Status: Acute Plan: Fluids:None Electrolytes: monitor and replete as needed Nutrition: Diabetic diet DVT Prophylaxis: Warfarin GI Prophylaxis: None indicated Problem Qualifiers (1) Bilateral leg ulcer: Qualified Codes: L97.912 - Non-pressure chronic ulcer of unspecified part of right lower leg with fat layer exposed; L97.922 - Non-pressure chronic ulcer of unspecified part of left lower leg with fat layer exposed (2) HTN (hypertension): Qualified Codes: I10 - Essential (primary) hypertension Miguelito Hatfield MD R1 Dec 20, 2016 11:28
--- NOTE | 2016-12-20 16:29 | MG ---
cc: HARRISON CHACON M.D., DALIA M.D. Lab No: Date: 12/20/2016 Age: 71 Sex: M Race: An EEG was obtained on this 71-year-old patient with history of ventriculomegaly. The patient is described as awake and drowsy. The EEG shows seven to eight per second of background activity. There are beta rhythms and muscle spikes. Photic stimulation disclosed no change. Hyperventilation was not performed. The patient drowses. INTERPRETATION Very minimally abnormal EEG because of mild background slowing suggestive of a mild diffuse disturbance of cerebral function. No epileptiform features present. Harrison Chacon MD [facility]/ /4:19 PM /4:23 PM
[2016-12-20] MEDS: WARFARIN SOD 5 MG TAB PO SCH (17:13)
[2016-12-21] VITALS (8 sets, daily range): BP systolic 117–175; BP diastolic 57–90; PULSE 57–86; RESP 20; TEMP 97.3–98.1; O2SAT 98–100
[2016-12-21] MEDS ORDERED: PHARMACY ORDERED LAB ONE (05:45)
[2016-12-21 07:13] LABS: POTASSIUM 3.9 MEQ/L (3.5-5.1)
[2016-12-21 07:13] LABS: HEMATOCRIT 31.3 % (39.0-51.0); MEAN CELL VOLUME 94.9 FL (80.0-100.0); MEAN CORPUSCULAR HGB CONC 34.8 % (32.0-36.0); PLATELET COUNT 214 TH/MM3 (150-450); REVIEW FLAG FINAL; WHITE BLOOD COUNT 7.4 TH/MM3 (4.0-11.0)
[2016-12-21 07:14] LABS: INTERNATIONAL NORMALIZED RATIO 2.2 RATIO; PROTHROMBIN TIME - PATIENT 24.8 SEC (9.8-11.6)
[2016-12-21 07:14] LABS: BICARBONATE 25.3 MEQ/L (21.0-32.0); VANCOMYCIN TROUGH 19.8 MCG/ML (5.0-10.0)
[2016-12-21] MEDS: VANCOMYCIN INJ 1,250 MG in SODIUM CHLOR 0.9% 250 ML INJ 250 ML IV SCH (07:16)
[2016-12-21] MEDS: MULTIVITAMIN TAB PO SCH (09:18)
[2016-12-21] MEDS: FOLIC ACID 1 MG TAB PO SCH (09:18)
[2016-12-21] MEDS: SODIUM CHLORIDE 0.9% FLUSH 5 ML FLUSH IV FLUSH SCH ×2 (09:19→20:43)
[2016-12-21] MEDS: LISINOPRIL 10 MG TAB PO SCH (09:19)
[2016-12-21] MEDS: FERROUS SULFATE 325 MG (65 MG ELEMENTAL IRON) TAB PO SCH (09:19)
[2016-12-21] MEDS: DOCUSATE SODIUM 50 MG/SENNA 8.6 MG TAB PO SCH ×2 (09:19→20:42)
[2016-12-21] MEDS: ASPIRIN 81 MG CHEW TAB PO SCH (09:19)
[2016-12-21] MEDS: THIAMINE HCL 100 MG TAB PO SCH (09:19)
--- NOTE | 2016-12-21 09:19 | HHI.FPPN ---
Subjective Remarks Patient seen and examined today. No acute events overnight. States he's feeling well. Still endorses a mild cough and occasional sputum production. No nausea, vomiting, fever, chills, chest pain, shortness of breath, abdominal pain, pain in his legs. Objective Vitals Vital Signs Date Time Temp Pulse Resp B/P (MAP) Pulse Ox O2 Delivery O2 Flow Rate FiO2 12/21/16 04:00 97.5 80 20 120/62 (81) 99 12/21/16 00:00 98.1 83 20 117/57 (77) 100 12/20/16 21:00 Room Air 12/20/16 20:00 97.9 85 20 124/56 (78) 98 12/20/16 16:00 97.5 76 16 183/83 (116) 99 12/20/16 11:08 80 12/20/16 09:24 Room Air I/O 12/20/16 12/20/16 12/20/16 12/21/16 12/21/16 12/21/16 07:00 15:00 23:00 07:00 15:00 23:00 Intake Total 600 ml 840 ml 360 ml Output Total 1075 ml 600 ml 250 ml Balance -475 ml 240 ml 110 ml Intake Oral 600 ml 540 ml 360 ml IV Total 300 ml Output Urine Total 1075 ml 600 ml 250 ml # Bowel Movements 1 Result Diagram: 12/21/1612 12/21/16 0545 Objective Remarks GENERAL: Well-nourished elderly male patient lying in bed, in no apparent distress. SKIN: Warm and dry. Skin is notable for right medial and left lateral ulcers approximately 3 x 1 inches each, shallow, with surrounding hyperpigmentation up to the level of the knee and down to the foot, red beefy tissue without discharge present. There is no hair on the legs. B/l leg wounds are currently wrapped with clean dry gauze HEAD: Atraumatic. Normocephalic. EYES: PERRL. EOMI. No scleral icterus. Mild conjunctival injection noted. ENT: No nasal bleeding or discharge. Mucous membranes pink and moist. NECK: Trachea midline. No JVD. CARDIOVASCULAR: Irregular rhythm. 2/6 systolic murmur at upper sternal border. RESPIRATORY: No accessory muscle use. Clear to auscultation. Breath sounds equal bilaterally. GASTROINTESTINAL: Abdomen soft, non-tender, obese. Bowel sounds normal. MUSCULOSKELETAL: Extremities with mild swelling, see skin above. No clubbing, cyanosis. NEUROLOGICAL: Awake and alert. 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 Motor grossly within normal limits. Normal speech. PSYCHIATRIC: Appropriate mood and affect; insight and judgment normal. Medications and IVs Current Medications Medications (Trade) Dose Ordered Sig/Gale Route Start Time Stop Time Status Last Admin (Tylenol) 650 mg Q4H PRN PO 12/17/16 19:45 (Zofran Inj) 4 mg Q6H PRN IVP 12/17/16 19:45 (Narcan Inj) 0.4 mg UNSCH PRN IV PUSH 12/17/16 19:45 (Denise-Colace) 1 tab BID PO 12/17/16 21:00 12/20/16 20:22 (Milk Of Magnesia Liq) 30 ml Q12H PRN PO 12/17/16 19:45 (Senokot) 17.2 mg Q12H PRN PO 12/17/16 19:45 (Dulcolax Supp) 10 mg DAILY PRN RECTAL 12/17/16 19:45 (Lactulose Liq) 30 ml DAILY PRN PO 12/17/16 19:45 (NS Flush) 2 ml BID IV FLUSH 12/17/16 21:00 12/19/16 20:52 (NS Flush) 2 ml UNSCH PRN IV FLUSH 12/17/16 20:00 (Aspirin Chew) 81 mg DAILY PO 12/18/16 09:00 12/20/16 09:08 (Romazicon Inj) 0.2 mg Q1M PRN IV PUSH 12/17/16 20:00 (Ativan) 1 mg Q4H PRN PO 12/17/16 20:00 (Ativan Inj) 1 mg Q4H PRN IV PUSH 12/17/16 20:00 (Ativan) 2 mg Q2H PRN PO 12/17/16 20:00 (Ativan Inj) 2 mg Q2H PRN IV PUSH 12/17/16 20:00 (Ativan Inj) 2 mg Q1H PRN IV PUSH 12/17/16 20:00 (Ativan Inj) 2 mg Q15M PRN IV PUSH 12/17/16 20:00 (Coumadin) 5 mg DAILY@1600 PO 12/18/16 16:00 12/20/16 17:13 (Ferrous Sulfate) 325 mg DAILY PO 12/18/16 09:00 12/20/16 09:08 Pharmacy Profile Note 0 ml @ 0 mls/hr UNSCH OTHER 12/17/16 22:30 (Vasotec Inj) 1.25 mg Q6H PRN IV PUSH 12/17/16 22:30 (Theragran) 1 tab DAILY PO 12/18/16 09:00 12/20/16 09:08 (Vitamin B1) 100 mg DAILY PO 12/18/16 09:00 12/20/16 09:08 (Folate) 1 mg DAILY PO 12/18/16 09:00 12/20/16 09:08 (Catapres) 0.1 mg Q6H PRN PO 12/18/16 00:15 12/20/16 03:50 Pharmacy Profile Note 0 ml @ 0 mls/hr UNSCH OTHER 12/18/16 14:30 Vancomycin HCl 1250 mg/Sodium Chloride 262.5 ml @ 250 mls/hr Q12H IV 12/19/16 18:00 12/21/16 07:16 (Prinivil) 10 mg DAILY PO 12/20/16 09:00 12/20/16 09:08 (Tears Naturale Opth Soln) 1 drop Q4H PRN EACH EYE 12/20/16 09:30 (Duoneb Neb) 1 ampule Q8HR NEB PRN NEB 12/20/16 09:30 A/P Assessment and Plan Patient is a 71-year-old male with history significant for hypertension, diabetes, hyperlipidemia, alcohol abuse, A. fib who presents with 2 day history of malaise and weakness. CT was notable for enlarged ventricles, no evidence of acute bleed. Neurologic exam is unremarkable. Clinically, differential for patient's symptoms are broad, however, given that he meets SIRS criteria on admission based on leukocytosis and tachycardia, infection is likely playing a role. Source is likely lower extremity wounds. ED course: Patient received 1 L bolus normal saline, IV access, basic labs, blood cultures, chest x-ray, urinalysis. CT brain was also performed. Lactic acid performed and normal. He was started on Vancomycin and Zosyn empirically. Discharge Planning Anticipate discharge after clean blood culture, antibiotic recommendation by ID. Likely 1-2 days. Problem List: (1) Bilateral leg ulcer ICD Codes: L97.919 - Non-pressure chronic ulcer of unspecified part of right lower leg with unspecified severity; L97.929 - Non-pressure chronic ulcer of unspecified part of left lower leg with unspecified severity Status: Acute Plan: Patient has multiple chronic wounds on the lower extremities. He has been managed via home health nursing for many months. He has no acute symptoms related to these ulcers. Likely source of infection, as chest x ray with no signs of pneumonia and UA with negative nitrites and leukocyte esterase. Symptomatically improving. * Wound culture obtained, Staph and Group D Enterococcus * Blood culture with Staph Hominis-Hominis, Staph sp * ID consulted * Wound care consult * Keep wounds clean and dry * Monitor for signs of acute infection Imaging: Lower extremity ultrasound: No evidence of DVT, nonspecific right inguinal adenopathy with the largest of done measuring 3.6 cm Medications: Vancomycin 1500 mg BID, pharmacy consulted Labs and blood cultures to be repeated if there are signs/symptoms concerning for an acute infection (2) Weakness generalized ICD Codes: R53.1 - Weakness; L97.929 - Non-pressure chronic ulcer of unspecified part of left lower leg with unspecified severity Status: Acute Plan: Patient presented with generalized weakness with a broad differential including NPH, sepsis, CVA, TIA, electrolyte abnormality, hypoglycemia. Chronicity of symptoms place patient outside of any stroke treatment windows. Glucose was normal on admission. CT head does show evidence of enlarged ventricles though patient has no evidence of altered mental status or urinary incontinence. * Acute CVA ruled out, see imaging results below * PT evaluation - PT at rehab * Aspirin * Continue warfarin, see Atrial fibrillation * Lipid profile within normal limits * Hemoglobin A1c pending * ACS rule out negative * Will DC Accu-Cheks as blood sugars have been within normal limits * Neurology is consulted to assist in medical management, appreciate recs regarding further workup though symptoms may be related to sepsis * CTA neck shows no focal high grade stenosis Imaging: Brain MRI: Stable mild diffuse ventriculomegaly out of proportion to the degree of atrophy. Correlation for normal pressure hydrocephalus is recommended. No acute ischemic or other acute intracranial abnormality Brain MRA: Unremarkable exam Head CT: Possible normal pressure hydrocephalus. No evidence of acute cranial pathology. No masses identified. Carotid artery ultrasound: Moderate right carotid bifurcation stenosis suspected. CT of the carotids recommended. (3) Atrial fibrillation with normal ventricular rate ICD Codes: I48.91 - Unspecified atrial fibrillation Status: Chronic Plan: Patient with chronic history of A. fib on warfarin, rate controlled * Monitor on telemetry * Monitor for RVR, if noted will treat accordingly * Continue home Warfarin, pharmacy consulted (4) Cardiomegaly ICD Codes: I51.7 - Cardiomegaly Status: Acute Plan: Patient notes have significant cardiomegaly on CXR, and this may related to CHF, pericardial effusion, etc. We'll order 2-D echo to further elucidate. -Echo EF 55-60%, aortic valve area 1 cm which should be followed outpatient. Mild to moderate aortic stenosis, trace aortic regurgitation, trace to mild mitral valve regurgitation, [id number] tricuspid valve regurgitation. (5) HTN (hypertension) ICD Codes: I10 - Essential (primary) hypertension Status: Chronic Plan: Chronic hypertension, treat with low-dose lisinopril and PRN Vasotec (6) Alcohol use ICD Codes: Z78.9 - Other specified health status Status: Chronic Plan: Chronic alcohol overuse. Patient counseled regarding alcohol cessation [place] protocol. Rally pack. (7) Fluids/Electrolytes/Nutrition/Prophylaxis Status: Acute Plan: Fluids:None Electrolytes: monitor and replete as needed Nutrition: Diabetic diet DVT Prophylaxis: Warfarin GI Prophylaxis: None indicated Problem Qualifiers (1) Bilateral leg ulcer: Qualified Codes: L97.912 - Non-pressure chronic ulcer of unspecified part of right lower leg with fat layer exposed; L97.922 - Non-pressure chronic ulcer of unspecified part of left lower leg with fat layer exposed (2) HTN (hypertension): Qualified Codes: I10 - Essential (primary) hypertension Miguelito Hatfield MD R1 Dec 21, 2016 09:19
--- NOTE | 2016-12-21 14:15 | HHI.IDPN ---
Subjective Subjective Remarks doing OK afebrile OOB in a chair Antibiotics vancomycin Past Medical History liver cirrhosis Allergies: Coded Allergies: No Known Allergies (Unverified , 12/17/16) Objective . Vital Signs Date Time Temp Pulse Resp B/P (MAP) Pulse Ox O2 Delivery O2 Flow Rate FiO2 12/21/16 09:27 Room Air 12/21/16 09:27 78 12/21/16 08:00 97.5 74 20 175/90 (118) 100 12/21/16 04:00 97.5 80 20 120/62 (81) 99 12/21/16 00:00 98.1 83 20 117/57 (77) 100 12/20/16 21:00 Room Air 12/20/16 20:00 97.9 85 20 124/56 (78) 98 12/20/16 16:00 97.5 76 16 183/83 (116) 99 . Laboratory Tests Test 12/20/16 05:41 12/21/16 06:12 White Blood Count 6.5 TH/MM3 7.4 TH/MM3 Red Blood Count 3.21 MIL/MM3 3.30 MIL/MM3 Hemoglobin 10.6 GM/DL 10.9 GM/DL Hematocrit 30.6 % 31.3 % Mean Corpuscular Volume 95.3 FL 94.9 FL Mean Corpuscular Hemoglobin 33.0 PG 33.0 PG Mean Corpuscular Hemoglobin Concent 34.6 % 34.8 % Red Cell Distribution Width 16.4 % 16.0 % Platelet Count 184 TH/MM3 214 TH/MM3 Mean Platelet Volume 7.2 FL 6.9 FL Neutrophils (%) (Auto) 69.4 % Lymphocytes (%) (Auto) 14.2 % Monocytes (%) (Auto) 6.6 % Eosinophils (%) (Auto) 8.7 % Basophils (%) (Auto) 1.1 % Neutrophils # (Auto) 4.5 TH/MM3 Lymphocytes # (Auto) 0.9 TH/MM3 Monocytes # (Auto) 0.4 TH/MM3 Eosinophils # (Auto) 0.6 TH/MM3 Basophils # (Auto) 0.1 TH/MM3 CBC Comment DIFF FINAL Differential Comment Laboratory Tests Test 12/20/16 05:41 12/21/16 05:45 Blood Urea Nitrogen 11 MG/DL 11 MG/DL Creatinine 0.56 MG/DL 0.60 MG/DL Random Glucose 100 MG/DL 103 MG/DL Total Protein 6.8 GM/DL Albumin 2.2 GM/DL Calcium Level 8.1 MG/DL 8.6 MG/DL Magnesium Level 1.8 MG/DL Alkaline Phosphatase 84 U/L Aspartate Amino Transf (AST/SGOT) 19 U/L Alanine Aminotransferase (ALT/SGPT) 17 U/L Total Bilirubin 0.6 MG/DL Sodium Level 133 MEQ/L 132 MEQ/L Potassium Level 3.7 MEQ/L 3.9 MEQ/L Chloride Level 100 MEQ/L 99 MEQ/L Carbon Dioxide Level 24.6 MEQ/L 25.3 MEQ/L Anion Gap 8 MEQ/L 8 MEQ/L Estimat Glomerular Filtration Rate 143 ML/MIN 132 ML/MIN Microbiology Date/Time Source Procedure Growth Status 12/18/16 17:27 Sputum Expectorated Sputum Gram Stain - Final Complete 12/18/16 17:27 Sputum Expectorated Sputum Sputum Culture - Final MODERATE GROWTH NORMAL RESPIRATORY VIKTORIYA Complete 12/18/16 17:27 Urine Clean Catch Urine Culture - Final NO GROWTH IN 48 HOURS. Complete 12/18/16 16:29 Wound Leg Gram Stain - Final Complete 12/18/16 16:29 Wound Culture - Final Group A Beta Strep Staphylococcus Aureus Complete 12/18/16 16:04 Wound Leg Gram Stain - Final Complete 12/18/16 16:04 Wound Culture - Final Pseudomonas Aeruginosa Staphylococcus Aureus Enterococcus Faecalis Complete Imaging Last Impressions Neck CTA 12/18/16 0000 Signed Impressions: Service Date/Time: Sunday, December 18, 2016 18:05 - CONCLUSION: 1. Prominent calcified plaques are noted at both bifurcations. 2. Mild narrowing at the origin of the left internal carotid artery. 3. No focal high-grade stenosis is demonstrated. Anjel Mayfield MD Head Magnetic Resonance Angiography 12/18/16 0000 Signed Impressions: Service Date/Time: Sunday, December 18, 2016 08:19 - CONCLUSION: 1. Unremarkable MRA examination of the brain. Avelino Nieto MD Brain MRI 12/18/16 0000 Signed Impressions: Service Date/Time: Sunday, December 18, 2016 08:19 - CONCLUSION: 1. Stable mild diffuse ventriculomegaly out of proportion to the degree of atrophy. Correlation for normal pressure hydrocephalus is recommended. 2. No acute ischemia or other acute intracranial abnormality. Avelino Nieto MD Head CT [id number] Signed Impressions: Service Date/Time: Saturday, December 17, 2016 18:00 - CONCLUSION: 1. Possible normal pressure hydrocephalus. Correlation with clinical findings is necessary. No evidence of acute intracranial pathology. No masses are identified. Nehemiah Richmond MD Chest X-Ray [id number] Signed Impressions: Service Date/Time: Saturday, December 17, 2016 17:16 - CONCLUSION: 1. Compensated cardiomegaly, as above. Avelino Nieto MD Lower Extremity Ultrasound 12/17/16 0000 Signed Impressions: Service Date/Time: Saturday, December 17, 2016 22:05 - CONCLUSION: 1. No evidence of deep venous thrombosis. 2. Nonspecific right inguinal adenopathy with the largest lymph node measuring 3.6 cm Nehemiah Richmond MD Carotid Artery Ultrasound 12/17/16 0000 Signed Impressions: Service Date/Time: Saturday, December 17, 2016 21:46 - CONCLUSION: Moderate right carotid bifurcation stenosis suspected. Recommend further anatomic evaluation with CTA examination of the arch and carotids. Jefe Paris MD Physical Exam CONSTITUTIONAL/GENERAL: This is an adequately nourished patient, in no apparent distress. TUBES/LINES/DRAINS: SKIN: No jaundice, rashes, or lesions. Skin temperature appropriate. Not diaphoretic. CARDIOVASCULAR: Regular rate and rhythm without murmurs, gallops, or rubs. RESPIRATORY/CHEST: Symmetric, unlabored respirations. Clear to auscultation. Breath sounds equal bilaterally. No wheezes, rales, or rhonchi. GASTROINTESTINAL: Abdomen soft, non-tender, mildly distended. No hepato- splenomegaly, or palpable masses. No guarding. Bowel sounds present. GENITOURINARY: Without palpable bladder distension. MUSCULOSKELETAL: Extremities without clubbing, cyanosis, + chronic appearing edema with dark diiscoloration cw long standing venostasis much improved edema no erythema ulcerations dry NEUROLOGICAL: Awake and alert. Non focal PSYCHIATRIC: calm and pleasant Assessment & Plan Remarks Coag negative bacteremia, high grade -+ somewhat different morphology and sensitivity - also anaerobic bottle with differnt strian - based on abnove info likely contamination( e.i. pseudobacteremia) BLE chronic venostasis ulcerations RLE cellulitis - clinically resolving ETOH liver cirrhosis Polimicrobial nature of one of RLE wound clx likely to reflect chroniclly colonised wound ( PSAE, Enteroccci, >= enteric GNBs) REC's: dc vancomycin start keflex for mild RLE cellulitis Charlene Liz MD Dec 21, 2016 14:14
[2016-12-21] MEDS: CEPHALEXIN MONOHYDRATE 500 MG CAP PO SCH (17:32)
[2016-12-21] MEDS: WARFARIN SOD 5 MG TAB PO SCH (17:32)
[2016-12-22] VITALS (7 sets, daily range): BP systolic 106–173; BP diastolic 53–86; PULSE 79–92; RESP 18–20; TEMP 97–98.4; O2SAT 98–100
[2016-12-22] MEDS: CEPHALEXIN MONOHYDRATE 500 MG CAP PO SCH ×5 (00:06→23:48)
[2016-12-22] MEDS: FOLIC ACID 1 MG TAB PO SCH (08:04)
[2016-12-22] MEDS: ASPIRIN 81 MG CHEW TAB PO SCH (08:04)
[2016-12-22] MEDS: MULTIVITAMIN TAB PO SCH (08:04)
[2016-12-22] MEDS: LISINOPRIL 10 MG TAB PO SCH (08:04)
[2016-12-22] MEDS: THIAMINE HCL 100 MG TAB PO SCH (08:04)
[2016-12-22] MEDS: FERROUS SULFATE 325 MG (65 MG ELEMENTAL IRON) TAB PO SCH (08:04)
[2016-12-22] MEDS: SODIUM CHLORIDE 0.9% FLUSH 5 ML FLUSH IV FLUSH SCH ×2 (08:05→21:30)
[2016-12-22] MEDS: DOCUSATE SODIUM 50 MG/SENNA 8.6 MG TAB PO SCH ×2 (08:05→21:00)
[2016-12-22] MEDS ORDERED: NAPHAZOLINE HCL 0.012% OPHT SOLN 15 ML BOTTLE EACH EYE PRN (10:30)
[2016-12-22 11:01] LABS: AUTOMATED NEUTROPHIL # 5.8 TH/MM3 (1.8-7.7); BASOPHIL # 0.1 TH/MM3 (0-0.2); BASOPHIL % 0.8 % (0.0-2.0); EOSINOPHIL # 0.4 TH/MM3 (0-0.4); EOSINOPHIL % 5.3 % (0.0-4.0); HEMATOCRIT 33.7 % (39.0-51.0); HEMO FLAGS DIFF FINAL; LYMPHOCYTE # 1.5 TH/MM3 (1.0-4.8); MEAN CELL VOLUME 95.4 FL (80.0-100.0); MEAN CORPUSCULAR HEMOGLOBIN 32.9 PG (27.0-34.0); MEAN CORPUSCULAR HGB CONC 34.5 % (32.0-36.0); MONO % 6.6 % (0.0-8.0); NEUT % 69.3 % (16.0-70.0); PLATELET COUNT 237 TH/MM3 (150-450); RED BLOOD COUNT 3.54 MIL/MM3 (4.50-5.90); RED CELL DISTRIBUTION WIDTH 16.3 % (11.6-17.2); WHITE BLOOD COUNT 8.3 TH/MM3 (4.0-11.0)
[2016-12-22 11:12] LABS: INTERNATIONAL NORMALIZED RATIO 2.3 RATIO; PROTHROMBIN TIME - PATIENT 25.9 SEC (9.8-11.6)
[2016-12-22 11:21] LABS: BICARBONATE 29.6 MEQ/L (21.0-32.0); POTASSIUM 4.3 MEQ/L (3.5-5.1)
--- NOTE | 2016-12-22 12:26 | HHI.DCPOC ---
Discharge Care Plan Diagnosis: (1) Weakness generalized (2) Bilateral leg ulcer (3) Cardiomegaly (4) Hyperlipemia (5) Sepsis (6) HTN (hypertension) (7) Wound of lower extremity (8) Alcohol use Goals to Promote Your Health * To prevent worsening of your condition and complications * To maintain your health at the optimal level Directions to Meet Your Goals Take your medications as prescribed Follow your dietary instruction Follow activity as directed Keep your appointments as scheduled Take your immunizations and boosters as scheduled If your symptoms worsen call your PCP, if no PCP go to Urgent Care Center or Emergency Room Smoking is Dangerous to Your Health. Avoid second hand smoke Call the 24-hour hour crisis hotline for domestic abuse at Dionne Bolden MD R3 Dec 22, 2016 12:26
--- NOTE | 2016-12-22 13:15 | HHI.FPPN ---
Subjective Remarks Patient seen and examined today. No acute events overnight. States he is currently feeling well, however he states he has a history of dry eye and wishes for eyedrops for discomfort. No other complaints today. No nausea, vomiting, fever, chills, dull pain, chest pain, shortness of breath. Objective Vitals Vital Signs Date Time Temp Pulse Resp B/P (MAP) Pulse Ox O2 Delivery O2 Flow Rate FiO2 12/22/16 08:00 98.3 79 18 167/73 (104) 100 12/22/16 08:00 Room Air 12/22/16 04:00 98.4 79 20 106/53 (70) 98 12/22/16 00:00 97.5 80 18 149/78 (101) 100 12/21/16 20:16 79 12/21/16 20:00 Room Air 12/21/16 20:00 97.6 77 20 152/63 (92) 100 12/21/16 16:00 97.3 86 20 167/78 (107) 98 I/O 12/21/16 12/21/16 12/21/16 12/22/16 12/22/16 12/22/16 07:00 15:00 23:00 07:00 15:00 23:00 Intake Total 360 ml 730 ml 240 ml Output Total 250 ml 1000 ml 800 ml 300 ml Balance 110 ml -270 ml -560 ml -300 ml Intake Oral 360 ml 480 ml 240 ml IV Total 250 ml Output Urine Total 250 ml 1000 ml 800 ml 300 ml # Bowel Movements 1 1 Result Diagram: 12/22/16 1036 12/22/16 1036 Objective Remarks GENERAL: Well-nourished elderly male patient lying in bed, in no apparent distress. SKIN: Warm and dry. Skin is notable for right medial and left lateral ulcers approximately 3 x 1 inches each, shallow, with surrounding hyperpigmentation up to the level of the knee and down to the foot, red beefy tissue without discharge present. There is no hair on the legs. B/l leg wounds are currently wrapped with clean dry gauze HEAD: Atraumatic. Normocephalic. EYES: PERRL. EOMI. No scleral icterus. Mild conjunctival injection noted. ENT: No nasal bleeding or discharge. Mucous membranes pink and moist. NECK: Trachea midline. No JVD. CARDIOVASCULAR: Irregular rhythm. 04/16 systolic murmur at upper sternal border. RESPIRATORY: No accessory muscle use. Clear to auscultation. Breath sounds equal bilaterally. GASTROINTESTINAL: Abdomen soft, non-tender, obese. Bowel sounds normal. MUSCULOSKELETAL: Extremities with mild swelling, see skin above. No clubbing, cyanosis. NEUROLOGICAL: Awake and alert. pyrotechnic mixer II-XII. Motor grossly within normal limits. Normal speech. PSYCHIATRIC: Appropriate mood and affect; insight and judgment normal. Medications and IVs Current Medications Medications (Trade) Dose Ordered Sig/Gale Route Start Time Stop Time Status Last Admin (Tylenol) 650 mg Q4H PRN PO 12/17/16 19:45 (Zofran Inj) 4 mg Q6H PRN IVP 12/17/16 19:45 (Narcan Inj) 0.4 mg UNSCH PRN IV PUSH 12/17/16 19:45 (Denise-Colace) 1 tab BID PO 12/17/16 21:00 12/21/16 09:19 (Milk Of Magnesia Liq) 30 ml Q12H PRN PO 12/17/16 19:45 (Senokot) 17.2 mg Q12H PRN PO 12/17/16 19:45 (Dulcolax Supp) 10 mg DAILY PRN RECTAL 12/17/16 19:45 (Lactulose Liq) 30 ml DAILY PRN PO 12/17/16 19:45 (NS Flush) 2 ml BID IV FLUSH 12/17/16 21:00 12/22/16 08:05 (NS Flush) 2 ml UNSCH PRN IV FLUSH 12/17/16 20:00 (Aspirin Chew) 81 mg DAILY PO 12/18/16 09:00 12/22/16 08:04 (Romazicon Inj) 0.2 mg Q1M PRN IV PUSH 12/17/16 20:00 (Ativan) 1 mg Q4H PRN PO 12/17/16 20:00 (Ativan Inj) 1 mg Q4H PRN IV PUSH 12/17/16 20:00 (Ativan) 2 mg Q2H PRN PO 12/17/16 20:00 (Ativan Inj) 2 mg Q2H PRN IV PUSH 12/17/16 20:00 (Ativan Inj) 2 mg Q1H PRN IV PUSH 12/17/16 20:00 (Ativan Inj) 2 mg Q15M PRN IV PUSH 12/17/16 20:00 (Coumadin) 5 mg DAILY@1600 PO 12/18/16 16:00 12/21/16 17:32 (Ferrous Sulfate) 325 mg DAILY PO 12/18/16 09:00 12/22/16 08:04 (Vasotec Inj) 1.25 mg Q6H PRN IV PUSH 12/17/16 22:30 (Theragran) 1 tab DAILY PO 12/18/16 09:00 12/22/16 08:04 (Vitamin B1) 100 mg DAILY PO 12/18/16 09:00 12/22/16 08:04 (Folate) 1 mg DAILY PO 12/18/16 09:00 12/22/16 08:04 (Catapres) 0.1 mg Q6H PRN PO 12/18/16 00:15 12/20/16 03:50 Pharmacy Profile Note 0 ml @ 0 mls/hr UNSCH OTHER 12/18/16 14:30 (Prinivil) 10 mg DAILY PO 12/20/16 09:00 12/22/16 08:04 (Tears Naturale Opth Soln) 1 drop Q4H PRN EACH EYE 12/20/16 09:30 (Duoneb Neb) 1 ampule Q8HR NEB PRN NEB 12/20/16 09:30 (Keflex) 500 mg Q6HR PO 12/21/16 18:00 12/22/16 11:21 (Clear Eyes Redness Relief 0.012% Opth Soln) 1 drop QID PRN EACH EYE 12/22/16 10:30 A/P Assessment and Plan Patient is a 71-year-old male with history significant for hypertension, diabetes, hyperlipidemia, alcohol abuse, A. fib who presents with 2 day history of malaise and weakness. CT was notable for enlarged ventricles, no evidence of acute bleed. Neurologic exam is unremarkable. Clinically, differential for patient's symptoms are broad, however, given that he meets SIRS criteria on admission based on leukocytosis and tachycardia, infection is likely playing a role. Source is likely lower extremity wounds. Clinically improving. ED course: Patient received 1 L bolus normal saline, IV access, basic labs, blood cultures, chest x-ray, urinalysis. CT brain was also performed. Lactic acid performed and normal. He was started on Vancomycin and Zosyn empirically. Discharge Planning Anticipate discharge following placement and hyponatremia improvement Problem List: (1) Bilateral leg ulcer ICD Codes: L97.919 - Non-pressure chronic ulcer of unspecified part of right lower leg with unspecified severity; L97.929 - Non-pressure chronic ulcer of unspecified part of left lower leg with unspecified severity Status: Acute Plan: Patient has multiple chronic wounds on the lower extremities. He has been managed via home health nursing for many months. He has no acute symptoms related to these ulcers. Likely source of infection, as chest x ray with no signs of pneumonia and UA with negative nitrites and leukocyte esterase. Symptomatically improving. * Wound culture obtained, Staph and Group D Enterococcus * Blood culture with Staph Hominis-Hominis, Staph sp * ID consulted * Wound care consult * Keep wounds clean and dry * Monitor for signs of acute infection Imaging: Lower extremity ultrasound: No evidence of DVT, nonspecific right inguinal adenopathy with the largest of done measuring 3.6 cm Medications: Vancomycin 1500 mg BID (12/19 through 12/21) Keflex 500 mg every 6 hours Labs and blood cultures to be repeated if there are signs/symptoms concerning for an acute infection (2) Weakness generalized ICD Codes: R53.1 - Weakness; L97.929 - Non-pressure chronic ulcer of unspecified part of left lower leg with unspecified severity Status: Acute Plan: Patient presented with generalized weakness with a broad differential including NPH, sepsis, CVA, TIA, electrolyte abnormality, hypoglycemia. Chronicity of symptoms place patient outside of any stroke treatment windows. Glucose was normal on admission. CT head does show evidence of enlarged ventricles though patient has no evidence of altered mental status or urinary incontinence. * Acute CVA ruled out, see imaging results below * PT evaluation - PT at rehab * Aspirin * Continue warfarin, see Atrial fibrillation * Lipid profile within normal limits * Hemoglobin A1c pending * ACS rule out negative * Will DC Accu-Cheks as blood sugars have been within normal limits * Neurology is consulted to assist in medical management, appreciate recs regarding further workup though symptoms may be related to sepsis * CTA neck shows no focal high grade stenosis Imaging: Brain MRI: Stable mild diffuse ventriculomegaly out of proportion to the degree of atrophy. Correlation for normal pressure hydrocephalus is recommended. No acute ischemic or other acute intracranial abnormality Brain MRA: Unremarkable exam Head CT: Possible normal pressure hydrocephalus. No evidence of acute cranial pathology. No masses identified. Carotid artery ultrasound: Moderate right carotid bifurcation stenosis suspected. CT of the carotids recommended. (3) Hyponatremia ICD Codes: E87.1 - Hypo-osmolality and hyponatremia Plan: Sodium 129 on 12/22 * Fluid restriction * Follow-up BMP (4) Atrial fibrillation with normal ventricular rate ICD Codes: I48.91 - Unspecified atrial fibrillation Status: Chronic Plan: Patient with chronic history of A. fib on warfarin, rate controlled * Monitor on telemetry * Monitor for RVR, if noted will treat accordingly * Continue home Warfarin, pharmacy consulted * Currently therapeutic (5) Cardiomegaly ICD Codes: I51.7 - Cardiomegaly Status: Acute Plan: Patient notes have significant cardiomegaly on CXR, and this may related to CHF, pericardial effusion, etc. We'll order 2-D echo to further elucidate. -Echo EF 55-60%, aortic valve area 1 cm which should be followed outpatient. Mild to moderate aortic stenosis, trace aortic regurgitation, trace to mild mitral valve regurgitation, [id number] tricuspid valve regurgitation. (6) HTN (hypertension) ICD Codes: I10 - Essential (primary) hypertension Status: Chronic Plan: Chronic hypertension, treat with low-dose lisinopril and PRN Vasotec (7) Alcohol use ICD Codes: Z78.9 - Other specified health status Status: Chronic Plan: Chronic alcohol overuse. Patient counseled regarding alcohol cessation CIWA protocol. Rally pack. (8) Fluids/Electrolytes/Nutrition/Prophylaxis Status: Acute Plan: Fluids:PO, restricted Electrolytes: monitor and replete as needed Nutrition: Diabetic diet DVT Prophylaxis: Warfarin GI Prophylaxis: None indicated Problem Qualifiers (1) Bilateral leg ulcer: Qualified Codes: L97.912 - Non-pressure chronic ulcer of unspecified part of right lower leg with fat layer exposed; L97.922 - Non-pressure chronic ulcer of unspecified part of left lower leg with fat layer exposed (2) HTN (hypertension): Qualified Codes: I10 - Essential (primary) hypertension Miguelito Hatfield MD R1 Dec 22, 2016 13:15
[2016-12-22 15:22] LABS: BICARBONATE 29.7 MEQ/L (21.0-32.0); POTASSIUM 4.4 MEQ/L (3.5-5.1)
[2016-12-22] MEDS: WARFARIN SOD 5 MG TAB PO SCH (16:16)
--- NOTE | 2016-12-22 19:00 | HHI.PR ---
Addendum to Inpatient Note Addendum Reason: Additional Documentation Additional Information Off service note 12/22 Patient was admitted 12/17 for sepsis possible secondary to his bilateral chronic leg ulcers. She'll start vancomycin, Zosyn. Patient noted generalized weakness the morning of admission and some confusion as to the beginning that day. ACS and stroke workup performed. No acute stroke was seen on imaging. ACS workup was negative. Enlarged ventricles were seen on CT head suggestive of normal pressure hydrocephalus, however the neurologist consulted believe that when clinically correlated it was unlikely the patient had NPH. Infectious disease was consulted for patient's sepsis. Patient's blood cultures eventually grew Staphylococcus hominis-hominis and staph saprophyticus coagulase -negative, Culture grew pseudomonas aeruginosa, Staphylococcus aureus, Enterococcus faecalis. This is possibly due to surface contamination. Infectious disease narrowed the patient's antibiotics to just vancomycin, and Keflex following sensitivities. Miguelito Hatfield MD R1 Dec 22, 2016 19:00
[2016-12-23] VITALS: BP 148/71; PULSE 80; RESP 20; TEMP 97.7; O2SAT 100
[2016-12-23 05:00] VITALS: BP 140/90; PULSE 82; RESP 18; TEMP 98.3; O2SAT 99
[2016-12-23] MEDS: CEPHALEXIN MONOHYDRATE 500 MG CAP PO SCH ×2 (05:17→11:14)
[2016-12-23] MEDS ORDERED: PHARMACY ORDERED LAB ONE (05:45)
[2016-12-23 08:00] VITALS: BP 119/58; PULSE 74; PULSE 78; RESP 18; TEMP 97.4; O2SAT 99
[2016-12-23] MEDS: DOCUSATE SODIUM 50 MG/SENNA 8.6 MG TAB PO SCH ×2 (08:35→08:36)
[2016-12-23] MEDS: LISINOPRIL 10 MG TAB PO SCH (08:35)
[2016-12-23] MEDS: FOLIC ACID 1 MG TAB PO SCH (08:35)
[2016-12-23] MEDS: MULTIVITAMIN TAB PO SCH (08:35)
[2016-12-23] MEDS: ASPIRIN 81 MG CHEW TAB PO SCH (08:35)
[2016-12-23] MEDS: FERROUS SULFATE 325 MG (65 MG ELEMENTAL IRON) TAB PO SCH (08:35)
[2016-12-23] MEDS: THIAMINE HCL 100 MG TAB PO SCH (08:35)
[2016-12-23] MEDS: SODIUM CHLORIDE 0.9% FLUSH 5 ML FLUSH IV FLUSH SCH (08:35)
[2016-12-23 09:25] LABS: PROTHROMBIN TIME - PATIENT 22.9 SEC (9.8-11.6)
[2016-12-23 09:49] LABS: BICARBONATE 23.5 MEQ/L (21.0-32.0); POTASSIUM 4.3 MEQ/L (3.5-5.1)
--- NOTE | 2016-12-23 11:40 | HHI.FPPN ---
Subjective Remarks Patient was seen and examined this morning and feels well. He has no complaints today. Relative is at bedside and has a few questions regarding wound care which were answered in detail. Patient has no questions and is ready to go to rehabilitation. He denies fever, chills, difficulty swallowing or eating, with limited ambulation. He has no chest pain or shortness of breath. He has no pain in the lower extremities. He has no bleeding. Objective Vitals Vital Signs Date Time Temp Pulse Resp B/P (MAP) Pulse Ox O2 Delivery O2 Flow Rate FiO2 12/23/16 08:00 97.4 74 18 119/58 (78) 99 12/23/16 08:00 78 12/23/16 08:00 Room Air 12/23/16 05:00 98.3 82 18 140/90 (107) 99 12/23/16 00:00 97.7 80 20 148/71 (96) 100 12/22/16 20:30 Room Air 12/22/16 20:09 79 12/22/16 20:00 97.5 82 18 173/74 (107) 100 12/22/16 16:00 97.0 92 20 164/66 (98) 99 12/22/16 12:00 97.4 83 20 167/86 (113) 99 I/O 12/22/16 12/22/16 12/22/16 12/23/16 12/23/16 12/23/16 07:00 15:00 23:00 07:00 15:00 23:00 Intake Total 240 ml 720 ml Output Total 800 ml 300 ml 1000 ml 425 ml 200 ml Balance -560 ml -300 ml -280 ml -425 ml -200 ml Intake Oral 240 ml 720 ml Output Urine Total 800 ml 300 ml 1000 ml 425 ml 200 ml # Bowel Movements 1 2 1 Result Diagram: 12/22/16 1036 12/23/16 0815 Imaging Last Impressions Neck CTA 12/18/16 0000 Signed Impressions: Service Date/Time: Sunday, December 18, 2016 18:05 - CONCLUSION: 1. Prominent calcified plaques are noted at both bifurcations. 2. Mild narrowing at the origin of the left internal carotid artery. 3. No focal high-grade stenosis is demonstrated. Anjel Mayfield MD Head Magnetic Resonance Angiography 12/18/16 Signed Impressions: Service Date/Time: Sunday, December 18, 2016 08:19 - CONCLUSION: 1. Unremarkable MRA examination of the brain. Avelino Nieto MD Brain MRI 12/18/16 Signed Impressions: Service Date/Time: Sunday, December 18, 2016 08:19 - CONCLUSION: 1. Stable mild diffuse ventriculomegaly out of proportion to the degree of atrophy. Correlation for normal pressure hydrocephalus is recommended. 2. No acute ischemia or other acute intracranial abnormality. Avelino Nieto MD Head CT [id number] Signed Impressions: Service Date/Time: Saturday, December 17, 2016 18:00 - CONCLUSION: 1. Possible normal pressure hydrocephalus. Correlation with clinical findings is necessary. No evidence of acute intracranial pathology. No masses are identified. Nehemiah Richmond MD Chest X-Ray [id number] Signed Impressions: Service Date/Time: Saturday, December 17, 2016 17:16 - CONCLUSION: 1. Compensated cardiomegaly, as above. Avelino Nieto MD Lower Extremity Ultrasound 12/17/16 Signed Impressions: Service Date/Time: Saturday, December 17, 2016 22:05 - CONCLUSION: 1. No evidence of deep venous thrombosis. 2. Nonspecific right inguinal adenopathy with the largest lymph node measuring 3.6 cm Nehemiah Richmond MD Carotid Artery Ultrasound 12/17/16 Signed Impressions: Service Date/Time: Saturday, December 17, 2016 21:46 - CONCLUSION: Moderate right carotid bifurcation stenosis suspected. Recommend further anatomic evaluation with CTA examination of the arch and carotids. Jefe Paris MD Objective Remarks GENERAL: Well-nourished elderly male patient lying in bed, in no apparent distress. SKIN: Warm and dry. Skin is notable for right medial and left lateral ulcers approximately 3 x 1 inches each, shallow, with surrounding hyperpigmentation up to the level of the knee and down to the foot, red beefy tissue without discharge present. There is no hair on the legs. B/l leg wounds are currently wrapped with clean dry gauze HEAD: Atraumatic. Normocephalic. EYES: PERRL. EOMI. No scleral icterus. Mild conjunctival injection noted. ENT: No nasal bleeding or discharge. Mucous membranes pink and moist. NECK: Trachea midline. No JVD. CARDIOVASCULAR: Irregular rhythm. 2/6 systolic murmur at upper sternal border. RESPIRATORY: No accessory muscle use. Clear to auscultation. Breath sounds equal bilaterally. GASTROINTESTINAL: Abdomen soft, non-tender, obese. Bowel sounds normal. MUSCULOSKELETAL: Extremities with mild swelling, see skin above. No clubbing, cyanosis. NEUROLOGICAL: Awake and alert. pharmacist critical care II-XII. Motor grossly within normal limits. Normal speech. PSYCHIATRIC: Appropriate mood and affect; insight and judgment normal. Medications and IVs Inpatient Medications Acetaminophen (Tylenol) 650 mg Q4H PRN PO TEMP > 100.4; Start 12/17/16 at 19:45 Albuterol/ Ipratropium (Duoneb Neb) 1 ampule Q8HR NEB PRN NEB WHEEZING; Start 12/20/16 at 09:30 Artificial Tears (Tears Naturale Opth Soln) 1 drop Q4H PRN EACH EYE EYE IRRITATION Last administered on 12/22/16 16:17; Start 12/20/16 at 09:30 Aspirin (Aspirin Chew) 81 mg DAILY PO Last administered on 12/23/16 08:35; Start 12/18/16 at 09:00 Bisacodyl (Dulcolax Supp) 10 mg DAILY PRN RECTAL SEVERE CONSITIPATION; Start 12/17/16 at 19:45 Cephalexin Monohydrate (Keflex) 500 mg Q6HR PO Last administered on 12/23/16 11:14; Start 12/21/16 at 18:00 Clonidine (Catapres) 0.1 mg Q6H PRN PO SBP> OR = 180, DBP> OR = 100 Last administered on 12/20/16 03:50; Start 12/18/16 at 00:15 Dextrose (D50w (Vial) Inj) 50 ml UNSCH PRN IV PUSH HYPOGLYCEMIA-SEE COMMENTS; Start 12/17/16 at 20:00; Stop 12/18/16 at 14:33; Status DC Enalaprilat (Vasotec Inj) 1.25 mg Q6H PRN IV PUSH SBP> OR = 180, DBP> OR = 100 ; Start 12/17/16 at 22:30 Ferrous Sulfate (Ferrous Sulfate) 325 mg DAILY PO Last administered on 08:35; Start 12/18/16 at 09:00 Flumazenil (Romazicon Inj) 0.2 mg Q1M PRN IV PUSH SEE LABEL COMMENTS; Start at 20:00 Folic Acid (Folate) 1 mg DAILY PO Last administered on 12/23/16 08:35; Start 12/18/16 at 09:00 Glucagon (Glucagon Inj) 1 mg UNSCH PRN OTHER HYPOGLYCEMIA-SEE COMMENTS; Start 12/17/16 at 20:00; Stop 12/18/16 at 14:33; Status DC Insulin Aspart (NovoLOG SUPPLEMENTAL SCALE) 1 ACHS SQ ; Start 12/17/16 at 21:00 ; Stop 12/18/16 at 14:33; Status DC IV Flush (NS Flush) 2 ml UNSCH PRN IV FLUSH FLUSH AFTER USING IV ACCESS; Start 12/17/16 at 20:00 Lactulose (Lactulose Liq) 30 ml DAILY PRN PO SEVERE CONSITIPATION; Start at 19:45 Lisinopril (Prinivil) 10 mg DAILY PO Last administered on 12/23/16 08:35; Start 12/20/16 at 09:00 Lorazepam (Ativan Inj) 2 mg Q15M PRN IV PUSH CIWA > 20; Start 12/17/16 at 20:00 Lorazepam (Ativan) 2 mg Q2H PRN PO CIWA 11-14; Start 12/17/16 at 20:00 Magnesium Hydroxide (Milk Of Magnesia Liq) 30 ml Q12H PRN PO MILD - MODERATE CONSTIPATION; Start 12/17/16 at 19:45 Miscellaneous Information SPECIFIC LAB TO BE THEA... ONCE ONCE .XX ; Start at 05:45; Stop 12/23/16 at 05:45; Status DC Multivitamins (Theragran) 1 tab DAILY PO Last administered on 12/23/16 08:35 ; Start 12/18/16 at 09:00 Naloxone HCl (Narcan Inj) 0.4 mg UNSCH PRN IV PUSH SEE LABEL COMMENTS; Start 12/17/16 at 19:45 Naphazoline HCl (Clear Eyes Redness Relief 0.012% Opth Soln) 1 drop QID PRN EACH EYE DRY EYE; Start 12/22/16 at 10:30 Ondansetron HCl (Zofran Inj) 4 mg Q6H PRN IVP NAUSEA OR VOMITING; Start at 19:45 Patient Medication Teaching (Coumadin Booklet) 1 ONCE ONCE OTHER Last administered on 12/18/16 17:03; Start 12/17/16 at 22:15; Stop 12/17/16 at 22: 16; Status DC Pharmacy Profile Note 0 ml @ 0 mls/hr UNSCH OTHER ; Start 12/18/16 at 14:30 Piperacillin Sod/ Tazobactam Sod 50 ml @ 100 mls/hr Q6H IV Last administered on 12/20/16 12:15; Start 12/18/16 at 01:15; Stop 12/20/16 at 14:16; Status DC Potassium Chloride/Sodium Chloride 1,000 ml @ 125 mls/hr Q8H IV Last administered on 12/17/16 22:49; Start 12/17/16 at 23:00; Stop 12/18/16 at 13: 54; Status DC Senna/Docusate Sodium (Denise-Colace) 1 tab BID PO Last administered on 09:19; Start 12/17/16 at 21:00 Sennosides (Senokot) 17.2 mg Q12H PRN PO MODERATE - SEVERE CONSTIPATION; Start 12/17/16 at 19:45 Sodium Chloride (NS Flush) 2 ml BID IV FLUSH ; Start 12/17/16 at 21:00; Stop at 22:11; Status DC Thiamine HCl (Vitamin B1) 100 mg DAILY PO Last administered on 12/23/16 08:35 ; Start 12/18/16 at 09:00 Vancomycin HCl 1000 mg/Sodium Chloride 250 ml @ 250 mls/hr ONCE ONCE IV Last administered on 12/17/16 22:49; Start 12/17/16 at 23:00; Stop 12/17/16 at 23:59 ; Status DC Vancomycin HCl 1250 mg/Sodium Chloride 262.5 ml @ 250 mls/hr Q12H IV Last administered on 12/21/16 07:16; Start 12/19/16 at 18:00; Stop 12/21/16 at 14 :16; Status DC Vancomycin HCl 1500 mg/Sodium Chloride 515 ml @ 250 mls/hr Q12H IV Last administered on 12/19/16 00:10; Start 12/18/16 at 12:00; Stop 12/19/16 at 13 :02; Status DC Warfarin Sodium (Coumadin) 5 mg DAILY@1600 PO Last administered on 12/22/16 16:16; Start 12/18/16 at 16:00 Urinary Catheter: No Vascular Central Line Catheter: No A/P Assessment and Plan Patient is a 71-year-old male with history significant for hypertension, diabetes, hyperlipidemia, alcohol abuse, A. fib who presents with 2 day history of malaise and weakness. CT was notable for enlarged ventricles, no evidence of acute bleed. Neurologic exam is unremarkable. Clinically, differential for patient's symptoms are broad, however, given that he meets SIRS criteria on admission based on leukocytosis and tachycardia, infection is likely playing a role. Source is likely lower extremity wounds. Clinically improving. ED course: Patient received 1 L bolus normal saline, IV access, basic labs, blood cultures, chest x-ray, urinalysis. CT brain was also performed. Lactic acid performed and normal. He was started on Vancomycin and Zosyn empirically. Discharge Planning Anticipate discharge today. He will be going to [facility]. Problem List: (1) Bilateral leg ulcer ICD Codes: L97.919 - Non-pressure chronic ulcer of unspecified part of right lower leg with unspecified severity; L97.929 - Non-pressure chronic ulcer of unspecified part of left lower leg with unspecified severity Status: Acute Plan: Patient has multiple chronic wounds on the lower extremities. He has been managed via home health nursing for many months. He has no acute symptoms related to these ulcers. Likely source of infection, as chest x ray with no signs of pneumonia and UA with negative nitrites and leukocyte esterase. Medically cleared for home. He'll be discharged with Keflex 4 days to complete a 10 day total course of antibiotics. * Wound culture obtained, Staph and Group D Enterococcus * Blood culture with Staph Hominis-Hominis, Staph sp * ID consulted, appreciate recommendations. * Wound care consult * Keep wounds clean and dry * Monitor for signs of acute infection Imaging: Lower extremity ultrasound: No evidence of DVT, nonspecific right inguinal adenopathy with the largest of done measuring 3.6 cm Medications: Vancomycin 1500 mg BID (12/19 through 12/21) Keflex 500 mg every 6 hours (2) Weakness generalized ICD Codes: R53.1 - Weakness; L97.929 - Non-pressure chronic ulcer of unspecified part of left lower leg with unspecified severity Status: Acute Plan: Patient presented with generalized weakness with a broad differential including NPH, sepsis, CVA, TIA, electrolyte abnormality, hypoglycemia. Chronicity of symptoms place patient outside of any stroke treatment windows. Glucose was normal on admission. CT head does show evidence of enlarged ventricles though patient has no evidence of altered mental status or urinary incontinence. * Acute CVA ruled out, see imaging results below * PT evaluation - PT at rehab * Aspirin * Continue warfarin, see Atrial fibrillation * Lipid profile within normal limits * Hemoglobin A1c pending * ACS rule out negative * Will DC Accu-Cheks as blood sugars have been within normal limits * Neurology is consulted to assist in medical management, appreciate recs regarding further workup though symptoms may be related to sepsis * CTA neck shows no focal high grade stenosis Imaging: Brain MRI: Stable mild diffuse ventriculomegaly out of proportion to the degree of atrophy. Correlation for normal pressure hydrocephalus is recommended. No acute ischemic or other acute intracranial abnormality Brain MRA: Unremarkable exam Head CT: Possible normal pressure hydrocephalus. No evidence of acute cranial pathology. No masses identified. Carotid artery ultrasound: Moderate right carotid bifurcation stenosis suspected. CT of the carotids recommended. (3) Hyponatremia ICD Codes: E87.1 - Hypo-osmolality and hyponatremia Status: Acute Plan: Sodium 129 on 12/22. It was 130 on admission. No abnormal EKG findings. No clinical evidence of abnormalities. His glucose is mildly elevated. * Fluid restriction * Follow-up BMP shows same value, likely chronic, monitor as outpatient (4) Atrial fibrillation with normal ventricular rate ICD Codes: I48.91 - Unspecified atrial fibrillation Status: Chronic Plan: Patient with chronic history of A. fib on warfarin, rate controlled * Continue home Warfarin dose of 5 mg daily. It is noted that he does take 2.5 mg on Tuesdays, but will discharge with 5 mg daily given INR is 2.0 during hospital stay. * Currently therapeutic (5) Cardiomegaly ICD Codes: I51.7 - Cardiomegaly Status: Acute Plan: Patient notes have significant cardiomegaly on CXR, and this may related to CHF, pericardial effusion, etc. 2-D echo performed -Echo EF 55-60%, aortic valve area 1 cm which should be followed outpatient. Mild to moderate aortic stenosis, trace aortic regurgitation, trace to mild mitral valve regurgitation, [id number] tricuspid valve regurgitation. -Patient to follow-up with PCP as outpatient for monitoring. He is on aspirin, ROSE inhibitor as outpatient for likely to benefit from medical optimization. (6) HTN (hypertension) ICD Codes: I10 - Essential (primary) hypertension Status: Chronic Plan: Chronic hypertension, treated with low-dose lisinopril and PRN Vasotec (7) Alcohol use ICD Codes: Z78.9 - Other specified health status Status: Chronic Plan: Chronic alcohol overuse. Patient counseled regarding alcohol cessation CIWA protocol - did not require Ativan Rally pack given in hospital (8) Fluids/Electrolytes/Nutrition/Prophylaxis Status: Acute Plan: Fluids:PO, restricted Electrolytes: monitor and replete as needed Nutrition: Diabetic diet DVT Prophylaxis: Warfarin GI Prophylaxis: None indicated Problem Qualifiers (1) Bilateral leg ulcer: Qualified Codes: L97.912 - Non-pressure chronic ulcer of unspecified part of right lower leg with fat layer exposed; L97.922 - Non-pressure chronic ulcer of unspecified part of left lower leg with fat layer exposed (2) HTN (hypertension): Qualified Codes: I10 - Essential (primary) hypertension Sindy Bolden MD R2 Dec 23, 2016 11:40
[2016-12-23 12:00] VITALS: BP 120/54; PULSE 80; RESP 18; TEMP 98.1; O2SAT 98
[2016-12-23 12:04] LABS: MEAN CELL VOLUME 95.7 FL (80.0-100.0); MEAN CORPUSCULAR HEMOGLOBIN 33.2 PG (27.0-34.0); MEAN CORPUSCULAR HGB CONC 34.7 % (32.0-36.0); PLATELET COUNT 244 TH/MM3 (150-450); RED BLOOD COUNT 3.55 MIL/MM3 (4.50-5.90); RED CELL DISTRIBUTION WIDTH 16.4 % (11.6-17.2); REVIEW FLAG FINAL; WHITE BLOOD COUNT 9.7 TH/MM3 (4.0-11.0)
[2016-12-23] MEDS ORDERED: CYAN2500 PO (12:04)
[2016-12-23] MEDS ORDERED: CEPH500C PO (12:04)
[2016-12-23] MEDS ORDERED: ACET1TAB86 PO (12:04)
[2016-12-23] MEDS ORDERED: POLY99.0 EACH EYE (12:04)
[2016-12-23] MEDS ORDERED: ASPI81CH25 PO (12:04)
[2016-12-23] MEDS ORDERED: FERR325C PO (12:04)
[2016-12-23] MEDS ORDERED: NAPH EACH EYE (12:04)
[2016-12-23] MEDS ORDERED: LISI10TA3 PO (12:04)
[2016-12-23] MEDS ORDERED: WALKER WHEELS/F1 MIS (12:07)
--- NOTE | 2016-12-23 13:09 | HHI.DS ---
Discharge Summary Admission Date Dec 17, 2016 at 19:31 Discharge Date: Dec 23, 2016 Admitting Diagnosis generalized weakness. Leg ulcers. (1) Bilateral leg ulcer Diagnosis: Principal Plan: Patient has multiple chronic wounds on the lower extremities. He has been managed via home health nursing for many months. He has no acute symptoms related to these ulcers. Likely source of infection, as chest x ray with no signs of pneumonia and UA with negative nitrites and leukocyte esterase. Medically cleared for home. He'll be discharged with Keflex 4 days to complete a 10 day total course of antibiotics. * Wound culture obtained, Staph and Group D Enterococcus * Blood culture with Staph Hominis-Hominis, Staph sp * ID consulted, appreciate recommendations. * Wound care consult * Keep wounds clean and dry * Monitor for signs of acute infection Imaging: Lower extremity ultrasound: No evidence of DVT, nonspecific right inguinal adenopathy with the largest of done measuring 3.6 cm Medications: Vancomycin 1500 mg BID (12/19 through 12/21) Keflex 500 mg every 6 hours ICD Codes: L97.919 - Non-pressure chronic ulcer of unspecified part of right lower leg with unspecified severity; L97.929 - Non-pressure chronic ulcer of unspecified part of left lower leg with unspecified severity Status: Acute (2) Weakness generalized Diagnosis: Principal Plan: Patient presented with generalized weakness with a broad differential including NPH, sepsis, CVA, TIA, electrolyte abnormality, hypoglycemia. Chronicity of symptoms place patient outside of any stroke treatment windows. Glucose was normal on admission. CT head does show evidence of enlarged ventricles though patient has no evidence of altered mental status or urinary incontinence. * Acute CVA ruled out, see imaging results below * PT evaluation - PT at rehab * Aspirin * Continue warfarin, see Atrial fibrillation * Lipid profile within normal limits * Hemoglobin A1c pending * ACS rule out negative * Will DC Accu-Cheks as blood sugars have been within normal limits * Neurology is consulted to assist in medical management, appreciate recs regarding further workup though symptoms may be related to sepsis * CTA neck shows no focal high grade stenosis Imaging: Brain MRI: Stable mild diffuse ventriculomegaly out of proportion to the degree of atrophy. Correlation for normal pressure hydrocephalus is recommended. No acute ischemic or other acute intracranial abnormality Brain MRA: Unremarkable exam Head CT: Possible normal pressure hydrocephalus. No evidence of acute cranial pathology. No masses identified. Carotid artery ultrasound: Moderate right carotid bifurcation stenosis suspected. CT of the carotids recommended. ICD Codes: R53.1 - Weakness; L97.929 - Non-pressure chronic ulcer of unspecified part of left lower leg with unspecified severity Status: Acute (3) Hyponatremia Diagnosis: Secondary Plan: Sodium 129 on 12/22. It was 130 on admission. No abnormal EKG findings. No clinical evidence of abnormalities. His glucose is mildly elevated. * Fluid restriction * Follow-up BMP shows same value, likely chronic, monitor as outpatient ICD Codes: E87.1 - Hypo-osmolality and hyponatremia Status: Acute (4) Atrial fibrillation with normal ventricular rate Diagnosis: Secondary Plan: Patient with chronic history of A. fib on warfarin, rate controlled * Continue home Warfarin dose of 5 mg daily. It is noted that he does take 2.5 mg on Tuesdays, but will discharge with 5 mg daily given INR is 2.0 during hospital stay. * Currently therapeutic ICD Codes: I48.91 - Unspecified atrial fibrillation Status: Chronic (5) Cardiomegaly Diagnosis: Secondary Plan: Patient notes have significant cardiomegaly on CXR, and this may related to CHF, pericardial effusion, etc. 2-D echo performed -Echo EF 55-60%, aortic valve area 1 cm which should be followed outpatient. Mild to moderate aortic stenosis, trace aortic regurgitation, trace to mild mitral valve regurgitation, [id number] tricuspid valve regurgitation. -Patient to follow-up with PCP as outpatient for monitoring. He is on aspirin, ROSE inhibitor as outpatient for likely to benefit from medical optimization. ICD Codes: I51.7 - Cardiomegaly Status: Acute (6) HTN (hypertension) Diagnosis: Secondary Plan: Chronic hypertension, treated with low-dose lisinopril and PRN Vasotec ICD Codes: I10 - Essential (primary) hypertension Status: Chronic (7) Alcohol use Diagnosis: Secondary Plan: Chronic alcohol overuse. Patient counseled regarding alcohol cessation [facility] protocol - did not require Ativan Rally pack given in hospital ICD Codes: Z78.9 - Other specified health status Status: Chronic (8) Fluids/Electrolytes/Nutrition/Prophylaxis Diagnosis: Secondary Plan: Fluids:PO, restricted Electrolytes: monitor and replete as needed Nutrition: Diabetic diet DVT Prophylaxis: Warfarin GI Prophylaxis: None indicated Status: Acute Consultants Infectious disease, wound care Brief History Patient is a 71-year-old male with a history significant for atrial fibrillation , hypertension, chronic leg ulcers, diabetes who presents to the ED with a 2 day history of weakness and forgetfulness. He says that he first noticed feeling a subjective fever yesterday with decreased appetite. He had just come back from a quick trip to [place]. He went to sleep but woke up this morning at around 6:30 AM feeling like he "couldn't get up" and that his "legs wouldn't work". He also feels like he's been forgetful. No urinary or bowel incontinence. He does feel like he's been excessively sleepy over the last day or so. He does note he has been unbalanced as well. Chronically he has been working with [facility]-appointed home health wound care nurses for management of chronic leg ulcers which have not significantly changed in their character. He denies any discharge or leg pain. His home health nurse noted a fever of 102.4F this morning. He denies chest pain, shortness of breath but he does have a productive cough over the last 2 weeks, productive of thick clear sputum. He feels he is dehydrated because he had trouble getting up out of bed over the last day. He did have a major fall 3 months ago for which he was admitted to [facility]. Workup revealed no abnormalities per patient. He states that the only new medication he has been started on the last month was a cholesterol medication for which he does not know the name. CBC/BMP: 12/23/16 1105 12/23/16 0815 Significant Findings Laboratory Tests Test 12/21/16 05:45 12/21/16 06:12 12/22/16 10:36 12/22/16 14:55 Sodium Level 132 MEQ/L (136-145) 129 MEQ/L (136-145) 129 MEQ/L (136-145) Vancomycin Level Trough 19.8 MCG/ML (5.0-10.0) Red Blood Count 3.30 MIL/MM3 (4.50-5.90) 3.54 MIL/MM3 (4.50-5.90) Hemoglobin 10.9 GM/DL (13.0-17.0) 11.6 GM/DL (13.0-17.0) Hematocrit 31.3 % (39.0-51.0) 33.7 % (39.0-51.0) Mean Platelet Volume 6.9 FL (7.0-11.0) 6.8 FL (7.0-11.0) Prothrombin Time 24.8 SEC (9.8-11.6) 25.9 SEC (9.8-11.6) Eosinophils (%) (Auto) 5.3 % (0.0-4.0) Random Glucose 117 MG/DL (74-106) Chloride Level 95 MEQ/L (98-107) 94 MEQ/L (98-107) Anion Gap 4 MEQ/L (5-15) Test 12/23/16 08:15 12/23/16 11:05 Prothrombin Time 22.9 SEC (9.8-11.6) Creatinine 0.52 MG/DL (0.60-1.30) Sodium Level 129 MEQ/L (136-145) Chloride Level 97 MEQ/L (98-107) Red Blood Count 3.55 MIL/MM3 (4.50-5.90) Hemoglobin 11.8 GM/DL (13.0-17.0) Hematocrit 34.0 % (39.0-51.0) Imaging Last Impressions Neck CTA 12/18/16 0000 Signed Impressions: Service Date/Time: Sunday, December 18, 2016 18:05 - CONCLUSION: 1. Prominent calcified plaques are noted at both bifurcations. 2. Mild narrowing at the origin of the left internal carotid artery. 3. No focal high-grade stenosis is demonstrated. Anjel Mayfield MD Head Magnetic Resonance Angiography 12/18/16 0000 Signed Impressions: Service Date/Time: Sunday, December 18, 2016 08:19 - CONCLUSION: 1. Unremarkable MRA examination of the brain. Avelino Nieto MD Brain MRI 12/18/16 0000 Signed Impressions: Service Date/Time: Sunday, December 18, 2016 08:19 - CONCLUSION: 1. Stable mild diffuse ventriculomegaly out of proportion to the degree of atrophy. Correlation for normal pressure hydrocephalus is recommended. 2. No acute ischemia or other acute intracranial abnormality. Avelino Nieto MD Head CT 12/17/16 1709 Signed Impressions: Service Date/Time: Saturday, December 17, 2016 18:00 - CONCLUSION: 1. Possible normal pressure hydrocephalus. Correlation with clinical findings is necessary. No evidence of acute intracranial pathology. No masses are identified. Nehemiah Richmond MD Chest X-Ray 12/17/16 1709 Signed Impressions: Service Date/Time: Saturday, December 17, 2016 17:16 - CONCLUSION: 1. Compensated cardiomegaly, as above. Avelino Nieto MD Lower Extremity Ultrasound 12/17/16 0000 Signed Impressions: Service Date/Time: Saturday, December 17, 2016 22:05 - CONCLUSION: 1. No evidence of deep venous thrombosis. 2. Nonspecific right inguinal adenopathy with the largest lymph node measuring 3.6 cm Nehemiah Richmond MD Carotid Artery Ultrasound 12/17/16 0000 Signed Impressions: Service Date/Time: Saturday, December 17, 2016 21:46 - CONCLUSION: Moderate right carotid bifurcation stenosis suspected. Recommend further anatomic evaluation with CTA examination of the arch and carotids. Jefe Paris MD PE at Discharge GENERAL: Well-nourished elderly male patient lying in bed, in no apparent distress. SKIN: Warm and dry. Skin is notable for right medial and left lateral ulcers approximately 3 x 1 inches each, shallow, with surrounding hyperpigmentation up to the level of the knee and down to the foot, red beefy tissue without discharge present. There is no hair on the legs. B/l leg wounds are currently wrapped with clean dry gauze HEAD: Atraumatic. Normocephalic. EYES: PERRL. EOMI. No scleral icterus. Mild conjunctival injection noted. ENT: No nasal bleeding or discharge. Mucous membranes pink and moist. NECK: Trachea midline. No JVD. CARDIOVASCULAR: Irregular rhythm. 2/6 systolic murmur at upper sternal border. RESPIRATORY: No accessory muscle use. Clear to auscultation. Breath sounds equal bilaterally. GASTROINTESTINAL: Abdomen soft, non-tender, obese. Bowel sounds normal. MUSCULOSKELETAL: Extremities with mild swelling, see skin above. No clubbing, cyanosis. NEUROLOGICAL: Awake and alert. 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 Motor grossly within normal limits. Normal speech. PSYCHIATRIC: Appropriate mood and affect; insight and judgment normal. Hospital Course Patient is a 71-year-old male with history significant for hypertension, diabetes, hyperlipidemia, alcohol abuse, A. fib who presents with 2 day history of malaise and weakness. CT was notable for enlarged ventricles, no evidence of acute bleed. Neurologic exam is unremarkable. Patient met sepsis criteria on admission likely source to be cellulitis. He was started probably on vancomycin and Zosyn and wound/blood cultures were followed. Findings are noted above. Given clinical improvement and wound/blood culture findings, ID recommended Keflex. Patient discharged with Keflex to complete a 10 day course. ED course: Patient received 1 L bolus normal saline, IV access, basic labs, blood cultures, chest x-ray, urinalysis. CT brain was also performed. Lactic acid performed and normal. He was started on Vancomycin and Zosyn empirically. Given murmur, echo was performed to rule out endocarditis and findings noted below. Given PT recommendation for inpt rehabilitation, patient was discharged to a rehabilitation facility. Patient medically stable for discharge 12/23. He is discharged with a followup INR given that we are discharging with 5 mg daily warfarin (he took 2.5 mg one day per week at home). INR 2.0 during stay. Pt Condition on Discharge: Stable Discharge Disposition: Discharge to SNF Discharge Instructions DIET: Follow Instructions for: Heart Healthy Diet Activities you can perform: See Additionl Instruction Other Activity Instructions: PT and OT evaluation and treatment per SNF Follow up Referrals: PCP Follow-up - 1 Week INR goal 2-3. On warfarin 5mg daily at d/c, but took 2.5mg one day of the week prior to admission. Please evaluate INR and LE wound. New Orders: COAG PROFILE - 3-5 Days New Medications: Walker with Front Wheels (Walker with Front Wheels) 1 Mis Mis EA .ROUTE DIRECTED, #1 0 Refills Acetaminophen (Eq Acetaminophen) 325 Mg Tab 650 MG PO Q4H PRN for TEMP > 100.4, #30 TAB Aspirin (Aspirin Low Strength) 81 Mg Chew 81 MG PO DAILY, #30 EA Cephalexin (Cephalexin) 500 Mg Cap 500 MG PO Q6HR, #16 CAP Lisinopril (Lisinopril) 10 Mg Tab 10 MG PO DAILY, #30 TAB Naphazoline HCl (Clear Eyes Redness Relief Drop) 0.012 %-0.25 % Drops 1 DROP EACH EYE QID PRN for DRY EYE, #1 BOTTLE Polyvinyl Alcohol Opth Drops (Artificial Tears Opth Drops) 1.4% Soln 1 DROP EACH EYE Q4H PRN for EYE IRRITATION, #1 BOTTLE Continued Medications: Cyanocobalamin (B-12) 2,500 Mcg Tab 2500 MCG PO DAILY for Nutritional Supplement, #1 BOTTLE 0 Refills (This prescription has been renewed) Ferrous Sulfate (Iron) 325 Mg Cap 325 MG PO DAILY for Nutritional Supplement, #30 TAB 0 Refills (This prescription has been renewed) Warfarin (Warfarin) 5 Mg Tab 5 MG PO DAILY for Blood Clot Prevention, #30 TAB 0 Refills Discontinued Medications: Lisinopril (Lisinopril) 5 Mg Tab 5 MG PO DAILY for Blood Pressure Management, #30 TAB 0 Refills Warfarin (Warfarin) 2.5 Mg Tab 2.5 MG PO SATURDAY for Blood Clot Prevention, #30 TAB 0 Refills Sindy Bolden MD R2 Dec 23, 2016 13:09
== END 2016-12-23 14:15 | DRG 872 ==
LOC: NEPE 16:03 → NEDA 19:31 → N04A 20:43
PROVIDERS: ADMIT Family Medicine; ATTEND Family Medicine
DX: A41.9 Sepsis, unspecified organism (principal); I11.0 Hypertensive heart disease with heart failure; I50.9 Heart failure, unspecified; E11.622 Type 2 diabetes mellitus with other skin ulcer; L97.819 Non-pressure chronic ulcer of other part of right lower leg with unspecified severity; L03.115 Cellulitis of right lower limb; E87.1 Hypo-osmolality and hyponatremia; L97.929 Non-pressure chronic ulcer of unspecified part of left lower leg with unspecified severity; E78.5 Hyperlipidemia, unspecified; F17.210 Nicotine dependence, cigarettes, uncomplicated; I48.2 Chronic atrial fibrillation; E78.00 Pure hypercholesterolemia, unspecified; I08.3 Combined rheumatic disorders of mitral, aortic and tricuspid valves; K74.60 Unspecified cirrhosis of liver; Z79.01 Long term (current) use of anticoagulants; Z72.0 Tobacco use
CPT/HCPCS: 70450; 70498; 70544; 70551; 71010; 80048; 80053; 80061; 80202; 81001; 82550; 82948; 83036; 83605; 83735; 83880; 84100; 84443; 84484; 85025; 85027; 85610; 85730; 86403; 87040; 87070; 87077; 87086; 87147; 87186; 87205; 87449; 93005; 93306; 93880; 93970; 95819; 96361; 96374; J2543; J3370; J3480; J7030; J7040; J7050; Q9967